=== PATIENT | female | born 1985 | race Caucasian/White ===

== ENCOUNTER 2018-08-17 18:01 | Emergency (ER) | payer SELFPAY ==
[2018-08-17] MEDS ORDERED: KETOROLAC 30 MG/ML INJ ONE (18:51)
[2018-08-17 19:04] LABS: Urine Blood NEGATIVE (NEG); Urine Glucose NEGATIVE (NEG); Urine Protein 1+ (NEG); Urine pH 7.5 (5.0-7.0)
--- NOTE | 2018-08-17 19:21 | ER ---
Nurse's Notes [facility] Name: Arun Sung Age: 33 yrs Sex: Female : 1985 Arrival Date: 08/17/2018 Time: 18:04 Bed 5 Private MD: Emery Cole E Diagnosis: Strain of muscle and tendon of back wall of thorax;Strain of muscle and tendon of thorax;Urinary tract infection, site not specified Presentation: 08/17 18:08 Presenting complaint: Patient states: I think I strained my back on Sunday and today la1 I coughed and felt something pop. Transition of care: patient was not received from another setting of care. Onset of symptoms was August 17, 2018. Risk Assessment: Do you want to hurt yourself or someone else? Patient reports no desire to harm self or others. Initial Sepsis Screen: Does the patient meet any 2 criteria? No. Patient's initial sepsis screen is negative. Does the patient have a suspected source of infection? No. Patient's initial sepsis screen is negative. Care prior to arrival: None. 18:08 Method Of Arrival: Ambulatory la1 18:08 Acuity: DEBI 4 la1 Historical: - Allergies: 18:09 No Known Allergies; la1 - PMHx: 18:09 None; la1 - PSHx: 18:09 None; la1 - Immunization history:: Adult Immunizations up to date. - Social history:: Smoking status: Patient uses tobacco products, smokes one pack cigarettes per day. - Ebola Screening: : No symptoms or risks identified at this time. - Family history:: not pertinent. Screenin:43 Abuse screen: Denies threats or abuse. Denies injuries from another. Nutritional aj screening: No deficits noted. Tuberculosis screening: No symptoms or risk factors identified. Fall Risk None identified. Assessment: 18:43 General: Appears in no apparent distress. comfortable, Behavior is calm, cooperative, aj appropriate for age. Pain: Complains of pain in left mid back and thoracic area. Neuro: Level of Consciousness is awake, alert, obeys commands, Oriented to person, place, time, situation, Appropriate for age. Respiratory: Airway is patent Respiratory effort is even, unlabored, Respiratory pattern is regular, symmetrical. Derm: Skin is intact, is healthy with good turgor, Skin is pink, warm \T\ dry. normal. Musculoskeletal: Reports pain in left mid back and thoracic area and left subscapular area. 19:47 Reassessment: Patient appears in no apparent distress at this time. No changes from aj previously documented assessment. Patient and/or family updated on plan of care and expected duration. Pain level reassessed. Patient is alert, oriented x 3, equal unlabored respirations, skin warm/dry/pink. Patient states feeling better. Patient states symptoms have improved. Vital Signs: 18:09 BP 126 / 79; Pulse 87; Resp 15; Temp 97.5; Pulse Ox 98% on R/A; Weight 61.23 kg; Height la1 5 ft. 7 in. (170.18 cm); 19:47 BP 125 / 76; Pulse 81; Resp 16; Pulse Ox 99% on R/A; aj 18:09 Body Mass Index 21.14 (61.23 kg, 170.18 cm) la1 ED Course: 18:04 Patient arrived in ED. mr 18:05 Emery Cole MD is Private Physician. mr 18:09 Triage completed. la1 18:09 Arm band placed on left wrist. la1 18:13 Jose Basilio MD is Attending Physician. [facility] 18:16 Kaylynn Bran, RN is Primary Nurse. aj 18:43 Patient has correct armband on for positive identification. aj 19:11 Chest Pa And Lat (2 Views) XRAY In Process Unspecified. EDNV 19:20 Emery Cole MD is Referral Physician. [facility] 19:47 No provider procedures requiring assistance completed. Patient did not have IV access aj during this emergency room visit. Administered Medications: 18:43 Drug: TORadol 60 mg Route: IM; Site: left gluteus; aj 19:48 Follow up: Response: No adverse reaction; Pain is decreased aj Outcome: 19:20 Discharge ordered by . lois 19:47 Discharged to home ambulatory. aj 19:47 Condition: good 19:47 Discharge instructions given to patient, Instructed on discharge instructions, follow up and referral plans. medication usage, Demonstrated understanding of instructions, follow-up care, medications, Prescriptions given X 4. 19:49 Patient left the ED. aj Signatures: Dispatcher [employer] EDMS Kaylynn Bran, RN Jose Ospina MD MD cha Rivera, Mary mr Attema, Lee, RN RN la1
--- NOTE | 2018-08-17 19:21 | EDPHYS ---
Physician Documentation [facility] Name: Arun Sung Age: 33 yrs Sex: Female : 1985 Arrival Date: 08/17/2018 Time: 18:04 Bed 5 Private MD: Emery Cole E ED Physician Jose Basilio HPI: 08/17 18:30 This 33 yrs old Female presents to ER via Ambulatory with complaints of Back lois Pain. 18:30 The patient presents with pain that is acute. The symptoms are located in the left lois subscapular area, right subscapular area, thoracic area, left mid back and right mid back. Onset: The symptoms/episode began/occurred today. The pain does not radiate. Associated signs and symptoms: The patient has no apparent associated signs or symptoms. The problem was sustained when lifting boxes. The problem was sustained when bending over, from twisting. Severity of symptoms: At their worst the symptoms were mild, moderate, in the emergency department the symptoms are unchanged. Historical: - Allergies: 18:09 No Known Allergies; la1 - PMHx: 18:09 None; la1 - PSHx: 18:09 None; la1 - Immunization history:: Adult Immunizations up to date. - Social history:: Smoking status: Patient uses tobacco products, smokes one pack cigarettes per day. - Ebola Screening: : No symptoms or risks identified at this time. - Family history:: not pertinent. ROS: 18:30 Constitutional: Negative for fever, chills, and weight loss, Eyes: Negative for injury, lois pain, redness, and discharge, ENT: Negative for injury, pain, and discharge, Neck: Negative for injury, pain, and swelling, Cardiovascular: Negative for chest pain, palpitations, and edema, Respiratory: Negative for shortness of breath, cough, wheezing, and pleuritic chest pain, Abdomen/GI: Negative for abdominal pain, nausea, vomiting, diarrhea, and constipation, : Negative for injury, bleeding, discharge, and swelling, MS/Extremity: Negative for injury and deformity, Skin: Negative for injury, rash, and discoloration, Neuro: Negative for headache, weakness, numbness, tingling, and seizure, Psych: Negative for depression, anxiety, suicide ideation, homicidal ideation, and hallucinations, Allergy/Immunology: Negative for hives, rash, and allergies, Endocrine: Negative for neck swelling, polydipsia, polyuria, polyphagia, and marked weight changes, Hematologic/Lymphatic: Negative for swollen nodes, abnormal bleeding, and unusual bruising. 18:30 Back: Positive for decreased range of motion, pain at rest, pain with movement. Exam: 18:30 Constitutional: This is a well developed, well nourished patient who is awake, alert, lois and in no acute distress. Head/Face: Normocephalic, atraumatic. Eyes: Pupils equal round and reactive to light, extra-ocular motions intact. Lids and lashes normal. Conjunctiva and sclera are non-icteric and not injected. Cornea within normal limits. Periorbital areas with no swelling, redness, or edema. ENT: Nares patent. No nasal discharge, no septal abnormalities noted. Tympanic membranes are normal and external auditory canals are clear. Oropharynx with no redness, swelling, or masses, exudates, or evidence of obstruction, uvula midline. Mucous membranes moist. Neck: Trachea midline, no thyromegaly or masses palpated, and no cervical lymphadenopathy. Supple, full range of motion without nuchal rigidity, or vertebral point tenderness. No Meningismus. Chest/axilla: Normal chest wall appearance and motion. Nontender with no deformity. No lesions are appreciated. Cardiovascular: Regular rate and rhythm with a normal S1 and S2. No gallops, murmurs, or rubs. Normal PMI, no JVD. No pulse deficits. Respiratory: Lungs have equal breath sounds bilaterally, clear to auscultation and percussion. No rales, rhonchi or wheezes noted. No increased work of breathing, no retractions or nasal flaring. Abdomen/GI: Soft, non-tender, with normal bowel sounds. No distension or tympany. No guarding or rebound. No evidence of tenderness throughout. Vital Signs: 18:09 BP 126 / 79; Pulse 87; Resp 15; Temp 97.5; Pulse Ox 98% on R/A; Weight 61.23 kg; Height la1 5 ft. 7 in. (170.18 cm); 19:47 BP 125 / 76; Pulse 81; Resp 16; Pulse Ox 99% on R/A; aj 18:09 Body Mass Index 21.14 (61.23 kg, 170.18 cm) la1 MDM: 18:13 Patient medically screened. [facility] 18:32 Data reviewed: vital signs, nurses notes, lab test result(s), radiologic studies. [facility] 08/17 18:41 Order name: Urine Dipstick--Ancillary (enter results) 08/17 18:41 Order name: Urine --Ancillary (enter results) 08/17 18:30 Order name: Chest Pa And Lat (2 Views) XRAY [facility] 08/17 18:30 Order name: Urine Dipstick-Ancillary (obtain specimen); Complete Time: 18:43 [facility] 08/17 19:20 Order name: Urine Culture [facility] 08/17 18:30 Order name: Urine Test (obtain specimen); Complete Time: 18:43 [facility] Administered Medications: 18:43 Drug: TORadol 60 mg Route: IM; Site: left gluteus; aj 19:48 Follow up: Response: No adverse reaction; Pain is decreased kika Disposition: 08/17/18 19:20 Discharged to Home. Impression: Strain of muscle and tendon of back wall of thorax, Strain of muscle and tendon of thorax, Urinary tract infection, site not specified. - Condition is Stable. - Discharge Instructions: Back Pain, Adult, Urinary Tract Infection, Adult, Urinary Tract Infection, Adult, [id number], Back Pain, Adult, [id number]. - Prescriptions for Ibuprofen 600 mg Oral Tablet - take 1 tablet by ORAL route every 6 hours As needed take with food; 30 tablet. Tylenol- Codeine #3 300-30 mg Oral Tablet - take 2 tablet by ORAL route every 6 hours As needed; 30 tablet. Valium 2 mg Oral Tablet - take 1 tablet by ORAL route every 8 hours As needed; 20 tablet. Bactrim DS 800- 160 mg Oral Tablet - take 1 tablet by ORAL route every 12 hours for 5 days; 10 tablet. - Medication Reconciliation Form, Thank You Letter, Antibiotic Education, Prescription Opioid Use, Work release form form. - Follow up: Emery Cole; When: 2 - 3 days; Reason: Recheck today's complaints, Continuance of care, Re-evaluation by your physician. - Problem is new. - Symptoms have improved. Signatures: Dispatcher [employer] Kaylynn Jorge RN RN aj Anderson, Corey, MD MD cha Attema, Lee RN RN la1 Corrections: (The following items were deleted from the chart) 19:49 19:20 08/17/2018 19:20 Discharged to Home. Impression: Strain of muscle and tendon of aj back wall of thorax; Strain of muscle and tendon of thorax; Urinary tract infection, site not specified. Condition is Stable. Discharge Instructions: Back Pain, Adult, Back Pain, Adult, [id number]. Prescriptions for Ibuprofen 600 mg Oral Tablet - take 1 tablet by ORAL route every 6 hours As needed take with food; 30 tablet, Tylenol-Codeine #3 300-30 mg Oral Tablet - take 2 tablet by ORAL route every 6 hours As needed; 30 tablet. and Forms are Medication Reconciliation Form, Thank You Letter, Antibiotic Education, Prescription Opioid Use. Follow up: Emery Cole; When: 2 - 3 days; Reason: Recheck today's complaints, Continuance of care, Re-evaluation by your physician. Problem is new. Symptoms have improved. lois
--- NOTE | 2018-08-17 20:02 | RAD REPORT ---
EXAM DESCRIPTION: Izabel Grossman (2 Views)08/17/2018 7:11 pm CLINICAL HISTORY: Cough COMPARISON: 2016 FINDINGS: The lungs appear clear of acute infiltrate. The heart is normal size IMPRESSION: No acute abnormalities displayed
== END 2018-08-17 19:49 | disposition home or self-care (01) ==
LOC: ER 18:01
DX: S29.012A Strain of muscle and tendon of back wall of thorax, initial encounter (principal); S29.011A Strain of muscle and tendon of front wall of thorax, initial encounter; X50.0XXA Overexertion from strenuous movement or load, initial encounter; X50.1XXA Overexertion from prolonged static or awkward postures, initial encounter; X50.9XXA Other and unspecified overexertion or strenuous movements or postures, initial encounter; Y93.89 Activity, other specified; Y92.9 Unspecified place or not applicable; N39.0 Urinary tract infection, site not specified; F17.210 Nicotine dependence, cigarettes, uncomplicated
CPT/HCPCS: 71046; 81003; 81025; 87086; 87088

== ENCOUNTER 2019-04-23 14:46 | Emergency (ER) | payer OTHER ==
[2019-04-23 15:41] LABS: Absolute Lymphocytes (CBC) 1.7 K/uL (0.7-4.9); Basophils % 0.5 % (0-1.3); Hematocrit 41.6 % (36.0-45.0); MPV 8.2 fL (7.6-11.3); RBC Red Blood Cell Count 4.25 M/uL (3.86-4.86)
[2019-04-23 15:52] LABS: Protime INR 1.01
--- NOTE | 2019-04-23 15:59 | RAD REPORT ---
EXAM DESCRIPTION: Izabel Single View04/23/2019 3:42 pm CLINICAL HISTORY: Chest pain COMPARISON: July 2018 FINDINGS: The lungs appear clear of acute infiltrate. The heart is normal size IMPRESSION: No acute abnormalities displayed
[2019-04-23 16:23] LABS: ALT/SGPT 12 U/L (12-78); AST/SGOT 9 U/L (15-37); Albumin 3.8 g/dL (3.4-5.0); Alkaline Phosphatase 59 U/L (45-117); BUN Blood Urea Nitrogen 8 mg/dL (7-18); Bicarbonate 25 mmol/L (21-32); Bilirubin Direct 0.1 mg/dL (0-0.2); Bilirubin Total 0.6 mg/dL (0.2-1.0); Glucose Level 88 mg/dL (74-106); Magnesium 1.9 mg/dL (1.8-2.4); NT PRO-BNP 63 pg/mL (<125); Potassium 3.4 mmol/L (3.5-5.1); Protein, Total 7.5 g/dL (6.4-8.2); Sodium Level 142 mmol/L (136-145); Troponin (Emerg Dept Use Only) < 0.02 ng/mL (0.0-0.045)
[2019-04-23] MEDS ORDERED: METHYLPREDNISOLONE 125 MG INJ ONE (16:51)
--- NOTE | 2019-04-23 16:52 | EDPHYS ---
Physician Documentation [facility] Name: Arun Sung Age: 34 yrs Sex: Female : 1985 Arrival Date: 04/23/2019 Time: 14:48 Bed 25 Private MD: ED Physician Cesar Barros HPI: 04/23 16:49 This 34 yrs old Female presents to ER via Ambulatory with complaints of Chest pm1 Pain. 16:49 The patient or guardian reports chest pain that is located primarily in the anterior pm1 chest wall, right. The pain does not radiate. Associated signs and symptoms: The patient has no apparent associated signs or symptoms, Pertinent positives: cough, Pertinent negatives: nausea, shortness of breath, vomiting. The chest pain is described as sharp. Duration: The patient or guardian reports a single episode, that is still ongoing. Modifying factors: the symptoms are aggravated by deep breath, palpation of area. Severity of pain: in the emergency department the pain is unchanged. The patient has not experienced similar symptoms in the past. The patient has not recently seen a physician. onset this AM. 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 - Social history:: Smoking status: Patient uses tobacco products, smokes one-half pack cigarettes per day, Patient uses alcohol, "i stopped drinking 3 months ago, i was a heavy drinker about 6 pk a day". - Ebola Screening: : Patient denies travel to an Ebola-affected area in the 21 days before illness onset. ROS: 16:49 Constitutional: Negative for fever, chills, and weight loss, Eyes: Negative for injury, pm1 pain, redness, and discharge, ENT: Negative for injury, pain, and discharge, Neck: Negative for injury, pain, and swelling. 16:49 Respiratory: 16:49 Respiratory: Positive for cough, Negative for shortness of breath, sputum production, wheezing. 16:49 Abdomen/GI: Negative for abdominal pain, nausea, vomiting, diarrhea, and constipation, pm1 Back: Negative for injury and pain, : Negative for injury, bleeding, discharge, and swelling, MS/Extremity: Negative for injury and deformity, Skin: Negative for injury, rash, and discoloration, Neuro: Negative for headache, weakness, numbness, tingling, and seizure. 16:49 Cardiovascular: Positive for chest pain, with cough, of the right breast, Negative for edema, palpitations. Exam: 16:49 Constitutional: This is a well developed, well nourished patient who is awake, alert, pm1 and in no acute distress. Head/Face: Normocephalic, atraumatic. Eyes: Pupils equal round and reactive to light, extra-ocular motions intact. Lids and lashes normal. Conjunctiva and sclera are non-icteric and not injected. Cornea within normal limits. Periorbital areas with no swelling, redness, or edema. ENT: Nares patent. No nasal discharge, no septal abnormalities noted. Tympanic membranes are normal and external auditory canals are clear. Oropharynx with no redness, swelling, or masses, exudates, or evidence of obstruction, uvula midline. Mucous membranes moist. Neck: Trachea midline, no thyromegaly or masses palpated, and no cervical lymphadenopathy. Supple, full range of motion without nuchal rigidity, or vertebral point tenderness. No Meningismus. 16:49 Cardiovascular: Regular rate and rhythm with a normal S1 and S2. No gallops, murmurs, or rubs. Normal PMI, no JVD. No pulse deficits. Respiratory: Lungs have equal breath sounds bilaterally, clear to auscultation and percussion. No rales, rhonchi or wheezes noted. No increased work of breathing, no retractions or nasal flaring. Abdomen/GI: Soft, non-tender, with normal bowel sounds. No distension or tympany. No guarding or rebound. No evidence of tenderness throughout. Back: No spinal tenderness. No costovertebral tenderness. Full range of motion. Skin: Warm, dry with normal turgor. Normal color with no rashes, no lesions, and no evidence of cellulitis. MS/ Extremity: Pulses equal, no cyanosis. Neurovascular intact. Full, normal range of motion. 16:49 Chest/axilla: Inspection: normal, Palpation: tenderness, that is mild, of the anterior aspect of right upper chest, that totally reproduces the patient's complaints. 16:49 Neuro: Orientation: is normal, Motor: is normal, moves all fours. Vital Signs: 15:00 BP 123 / 92; Pulse 111; Resp 18; Temp 98.6(TE); Pulse Ox 98% on R/A; Weight 63.5 kg tw2 (R); Height 5 ft. 7 in. (170.18 cm); Pain 6/10; 16:21 BP 99 / 70 RA (auto/reg); Pulse 60; Resp 16 S; Pulse Ox 99% on R/A; jp3 15:00 Body Mass Index 21.93 (63.50 kg, 170.18 cm) tw2 MDM: 15:15 Patient medically screened. pm1 16:49 Data reviewed: vital signs. Data interpreted: Pulse oximetry: on room air is 99 %. pm1 Interpretation: normal. Counseling: I had a detailed discussion with the patient and/or guardian regarding: the historical points, exam findings, and any diagnostic results supporting the discharge/admit diagnosis, lab results, radiology results, the need for outpatient follow up, to return to the emergency department if symptoms worsen or persist or if there are any questions or concerns that arise at home. 04/23 15:17 Order name: Basic Metabolic Panel; Complete Time: 16:36 pm04/23 15:17 Order name: CBC with Diff; Complete Time: 16:36 pm04/23 15:17 Order name: LFT's; Complete Time: 16:36 pm04/23 15:17 Order name: Magnesium; Complete Time: 16:36 pm04/23 15:17 Order name: NT PRO-BNP; Complete Time: 16:36 pm04/23 15:17 Order name: PT-INR; Complete Time: 16:36 pm04/23 15:17 Order name: Troponin (emerg Dept Use Only); Complete Time: 16:36 pm04/23 15:17 Order name: XRAY Chest (1 view); Complete Time: 16:36 pm04/23 15:17 Order name: EKG; Complete Time: 15:18 pm04/23 15:17 Order name: Cardiac monitoring; Complete Time: 15:36 pm04/23 15:17 Order name: EKG - Nurse/Tech; Complete Time: 15:36 pm04/23 15:17 Order name: IV Saline Lock; Complete Time: 15:36 pm1 04/23 15:17 Order name: Labs collected and sent; Complete Time: 15:36 pm1 04/23 15:17 Order name: O2 Per Protocol; Complete Time: 15:36 pm1 04/23 15:17 Order name: O2 Sat Monitoring; Complete Time: 15:36 pm1 Administered Medications: 16:52 Drug: SOLU-Medrol 125 mg Route: IVP; Site: left antecubital; ca1 16:57 Follow up: Response: Medication administered at discharge. ca1 Disposition: 04/24 08:55 Co-signature as Attending Physician, Cesar Barros MD I agree with the assessment and kdr plan of care. Disposition: 04/23/19 16:50 Discharged to Home. Impression: Chest pain, unspecified. - Condition is Stable. - Discharge Instructions: Nonspecific Chest Pain. - Prescriptions for Medrol (Handy) 4 mg Oral Tablets, Dose Pack - take 1 tablet by ORAL route as directed - follow package instructions; 1 packet. Guaifenesin AC 10- 100 mg/5 mL Oral Liquid - take 10 milliliter by ORAL route every 4 hours As needed; 240 milliliter. - Medication Reconciliation Form, Thank You Letter, Antibiotic Education, Prescription Opioid Use form. - Follow up: Emergency Department; When: As needed; Reason: Worsening of condition. Follow up: Private Physician; When: 2 - 3 days; Reason: Recheck today's complaints, Continuance of care, Re-evaluation by your physician. - Problem is new. - Symptoms have improved. Signatures: Dispatcher [employer] EDIA Cesar Barros MD MD [facility] Harvey Abraham NP SOLUTION MIXER pm1 Kiley Santiago RN RN tw2 Kathleen Valdivia RN RN ca1 Corrections: (The following items were deleted from the chart) 04/23 16:57 16:50 04/23/2019 16:50 Discharged to Home. Impression: Chest pain, unspecified. ca1 Condition is Stable. Forms are Medication Reconciliation Form, Thank You Letter, Antibiotic Education, Prescription Opioid Use. Follow up: Emergency Department; When: As needed; Reason: Worsening of condition. Follow up: Private Physician; When: 2 - 3 days; Reason: Recheck today's complaints, Continuance of care, Re-evaluation by your physician. Problem is new. Symptoms have improved. pm1 23:09 16:49 Associated signs and symptoms: The patient has no apparent associated signs or pm1 symptoms, Pertinent negatives: cough, nausea, shortness of breath, vomiting, pm1 : 16:49 Constitutional: Negative for fever, chills, and weight loss, Eyes: Negative for pm1 injury, pain, redness, and discharge, ENT: Negative for injury, pain, and discharge, Neck: Negative for injury, pain, and swelling, Cardiovascular: Negative for chest pain, palpitations, and edema, pm1 : 16:49 Respiratory: pm1 pm1
--- NOTE | 2019-04-23 16:52 | ER ---
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 Transition of care: patient was not received from another setting of care. Onset of symptoms was April 23, 2019. Risk Assessment: Do you want to hurt yourself or someone else? Patient reports no desire to harm self or others. Initial Sepsis Screen: Does the patient meet any 2 criteria? No. Patient's initial sepsis screen is negative. Does the patient have a suspected source of infection? No. Patient's initial sepsis screen is negative. Care prior to arrival: None. 14:58 Method Of Arrival: Ambulatory tw2 14:58 Acuity: DEBI 3 tw2 15:05 Presenting complaint: Patient states: i was also sick all last week with this cough and tw2 congestion. Triage Assessment: 15:01 General: Appears in no apparent distress. Behavior is cooperative, appropriate for age, tw2 anxious. Pain: Complains of pain in right breast. Cardiovascular: Reports chest pain. 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 - Social history:: Smoking status: Patient uses tobacco products, smokes one-half pack cigarettes per day, Patient uses alcohol, "i stopped drinking 3 months ago, i was a heavy drinker about 6 pk a day". - Ebola Screening: : Patient denies travel to an Ebola-affected area in the 21 days before illness onset. Screenin:05 Abuse screen: Denies threats or abuse. Nutritional screening: No deficits noted. tw2 Tuberculosis screening: No symptoms or risk factors identified. Fall Risk None identified. Assessment: 15:36 General: Appears in no apparent distress. comfortable, Behavior is calm, cooperative, ca1 appropriate for age. Pain: Complains of pain in anterior aspect of right upper chest and right breast Pain does not radiate. Pain currently is 7 out of 10 on a pain scale. Quality of pain is described as sharp, Pain began 1 day ago. Is continuous. Neuro: Level of Consciousness is awake, alert, obeys commands, Oriented to person, place, time, situation. Cardiovascular: Heart tones S1 S2 present Capillary refill < 3 seconds Patient's skin is warm and dry. Pulses are all present. Rhythm is sinus rhythm. Respiratory: Airway is patent Respiratory effort is even, unlabored, Respiratory pattern is regular, symmetrical, Breath sounds are clear bilaterally. GI: Abdomen is flat, non-distended, Bowel sounds present X 4 quads. Abd is soft and non tender X 4 quads. : No deficits noted. No signs and/or symptoms were reported regarding the genitourinary system. EENT: No deficits noted. No signs and/or symptoms were reported regarding the EENT system. Derm: Skin is intact, is healthy with good turgor, Skin is pink, warm \\T\\ dry. Musculoskeletal: Circulation, motion, and sensation intact. Capillary refill < 3 seconds, Range of motion: intact in all extremities. 16:29 Reassessment: Patient appears in no apparent distress at this time. Patient and/or ca1 family updated on plan of care and expected duration. Pain level reassessed. Patient is alert, oriented x 3, equal unlabored respirations, skin warm/dry/pink. Vital Signs: 15:00 BP 123 / 92; Pulse 111; Resp 18; Temp 98.6(TE); Pulse Ox 98% on R/A; Weight 63.5 kg tw2 (R); Height 5 ft. 7 in. (170.18 cm); Pain 6/10; 16:21 BP 99 / 70 RA (auto/reg); Pulse 60; Resp 16 S; Pulse Ox 99% on R/A; jp3 15:00 Body Mass Index 21.93 (63.50 kg, 170.18 cm) tw2 ED Course: 14:48 Patient arrived in ED. as 15:00 Triage completed. tw2 15:00 Arm band placed on. EKG completed in triage. Results shown to MD. tw2 15:07 Kathleen Valdivia, RN is Primary Nurse. ca1 15:12 Harvey Abraham NP is PHCP. pm1 15:12 Cesar Barros MD is Attending Physician. pm1 15:36 Patient has correct armband on for positive identification. Placed in gown. Bed in low ca1 position. Call light in reach. Side rails up X 1. lunchroom monitor on. Pulse ox on. NIBP on. Warm blanket given. 15:37 XRAY Chest (1 view) In Process Unspecified. EDMS 15:38 Patient maintains SpO2 saturation greater than 95% on room air. ca1 15:48 No provider procedures requiring assistance completed. ca1 16:57 IV discontinued, intact, bleeding controlled, No redness/swelling at site. Pressure ca1 dressing applied. Administered Medications: 16:52 Drug: SOLU-Medrol 125 mg Route: IVP; Site: left antecubital; ca1 16:57 Follow up: Response: Medication administered at discharge. ca1 Outcome: 16:50 Discharge ordered by MD. pm1 16:56 Discharged to home ambulatory. ca1 16:56 Condition: stable 16:56 Discharge instructions given to patient, Instructed on discharge instructions, follow up and referral plans. medication usage, Demonstrated understanding of instructions, follow-up care, medications, Prescriptions given X 2. 16:57 Patient left the ED. ca1 Signatures: Dispatcher [employer] EDMS Linda English as Harvey Abraham NP DIRECT SALES CONSULTANT pm1 Kiley Santiago RN RN tw2 Tc Gould jp3 Kathleen Valdivia RN RN ca1
[2019-04-23 17:08] VITALS: TEMP 98.6
[2019-04-23 17:09] VITALS: BP 99/70; O2SAT 99
--- NOTE | 2019-04-24 07:04 | EKG ---
Test Date: 2019-04-23 Test Time: 15:02:18 Dye Machine Tender: OLEG MEASUREMENT RESULTS: Intervals: Rate: 68 AZ: 118 QRSD: 76 QT: 428 QTc: 455 Bonham: P: 53 AZ: 118 QRS: 67 T: 31 INTERPRETIVE STATEMENTS: Normal sinus rhythm with sinus arrhythmia Normal ECG No previous ECG available for comparison Electronically Signed On 04-24-19 07:03:54 CDT by Nas Lang
== END 2019-04-23 16:57 | disposition home or self-care (01) ==
LOC: ER 14:46
CPT/HCPCS: 93005; 85025; 80048; 36415; 83735; 85610; 80076; 84484; 83880; 71045; 96374; 99285; J2930

== ENCOUNTER 2022-01-11 10:14 | Day surgery (SDC) | payer OTHER, SELFPAY ==
--- NOTE | 2022-01-11 11:41 | RAD REPORT ---
EXAM DESCRIPTION: US - Extremity Nonvascular Complete - 01/11/2022 11:08 am CLINICAL HISTORY: Pain, palpable mass inferior left cheek overlying the mandible. COMPARISON: No comparisons FINDINGS: Sonographic evaluation was performed of the palpable mass in the left cheek. A 13 millimet er oval hypoechoic mass is identifiable. On Doppler assessment there is increased vascularity in the soft tissues immediately adjacent to the hypoechoic mass. The mass itself shows no internal blood norberto w. Surrounding tissues are increased in echogenicity. An abscess is felt to be the most likely etiology. An atypical presentation of a lymph node is possib le. There is no typical echogenic lymph node hilum or vascularity along the hilum. IMPRESSION: Approximately 13 millimeter mass in the superficial soft tissues left cheek. This is the correlate to the palpable abnormality. Abscess is the most likely etiology. No involvement of deeper structures identifiable.
--- NOTE | 2022-01-11 13:40 | EDPHYS ---
Physician Documentation [facility] Name: Arun Sung Age: 36 yrs Sex: Female : 1985 Arrival Date: 01/11/2022 Time: 10:16 Bed 20 Private MD: ED Physician Cesar Barros HPI: 01/11 14:48 This 36 yrs old Female presents to ER via Ambulatory with complaints of Facial Swelling.kdr 14:48 Patient presents with swelling to the left mandible. She has had this small pimple for kdr about 2 months. Over the last 2 to 3 days, she has had increased swelling to her left mandibular area around this suppose it pimple. She denies fever, nausea or vomiting. She is otherwise in her usual state of health.. Onset: The symptoms/episode began/occurred gradually, 3 day(s) ago. Severity of symptoms: At their worst the symptoms were mild in the emergency department the symptoms are unchanged. The patient has not experienced similar symptoms in the past. The patient has not recently seen a physician. 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 Last tetanus immunization: unknown. - Social history:: Smoking status: Patient denies any tobacco usage or history of. ROS: 14:48 Constitutional: Negative for fever, chills, and weight loss, Eyes: Negative for injury, kdr pain, redness, and discharge, ENT: Negative for injury, pain, and discharge, Neck: Negative for injury, pain, and swelling, Cardiovascular: Negative for chest pain, palpitations, and edema, Respiratory: Negative for shortness of breath, cough, wheezing, and pleuritic chest pain, Abdomen/GI: Negative for abdominal pain, nausea, vomiting, diarrhea, and constipation, Back: Negative for injury and pain, : Negative for injury, bleeding, discharge, and swelling, MS/Extremity: Negative for injury and deformity, Neuro: Negative for headache, weakness, numbness, tingling, and seizure activity. Psych: Negative for depression, anxiety, suicide ideation, homicidal ideation, and hallucinations, Allergy/Immunology: Negative for hives, rash, and allergies, Endocrine: Negative for neck swelling, polydipsia, polyuria, polyphagia, and marked weight changes, Hematologic/Lymphatic: Negative for swollen nodes, abnormal bleeding, and unusual bruising. 14:48 Skin: Positive for abscess, cellulitis, erythema, swelling, of the left cheek. Exam: 14:48 Constitutional: This is a well developed, well nourished patient who is awake, alert, kdr and in no acute distress. Head/Face: Normocephalic, atraumatic. Eyes: Pupils equal round and reactive to light, extra-ocular motions intact. Lids and lashes normal. Conjunctiva and sclera are non-icteric and not injected. Cornea within normal limits. Periorbital areas with no swelling, redness, or edema. Neck: Trachea midline, no thyromegaly or masses palpated, and no cervical lymphadenopathy. Supple, full range of motion without nuchal rigidity, or vertebral point tenderness. No Meningismus. Chest/axilla: Normal chest wall appearance and motion. Nontender with no deformity. No lesions are appreciated. Cardiovascular: Regular rate and rhythm with a normal S1 and S2. No gallops, murmurs, or rubs. Normal PMI, no JVD. No pulse deficits. Respiratory: Lungs have equal breath sounds bilaterally, clear to auscultation and percussion. No rales, rhonchi or wheezes noted. No increased work of breathing, no retractions or nasal flaring. Abdomen/GI: Soft, non-tender, with normal bowel sounds. No distension or tympany. No guarding or rebound. No evidence of tenderness throughout. 14:48 Head/face: Noted is erythema, that is mild, of the left cheek. Vital Signs: 10:19 BP 139 / 97; Pulse 100; Resp 17; Temp 98.4(TE); Pulse Ox 100% on R/A; Weight 58.97 kg; tw2 Height 5 ft. 7 in. (170.18 cm) (R); Pain 6/10; 10:19 Body Mass Index 20.36 (58.97 kg, 170.18 cm) tw2 MDM: 13:39 Patient medically screened. kdr 14:48 Data reviewed: vital signs, nurses notes, lab test result(s), radiologic studies. kdr Counseling: I had a detailed discussion with the patient and/or guardian regarding: the historical points, exam findings, and any diagnostic results supporting the discharge/admit diagnosis, lab results, radiology results, the need for outpatient follow up. 01/11 13:51 Order name: Test Serum, [facility] 01/11 10:45 Order name: US Extrmty Nonvasular Limited kdr 01/11 10:49 Order name: Extremity Nonvascular Complete; Complete Time: 12:32 [facility] 01/11 13:27 Order name: NPO bd Administered Medications: No medications were administered Disposition Summary: 01/11/22 13:39 Hospitalization Ordered Hospitalization Status: Observation kdr Provider: Logan Ramirez Location: Operating Room kdr Condition: Fair kdr Problem: new kdr Symptoms: are unchanged kdr Bed/Room Type: Standard kdr Room Assignment: kdr Diagnosis - Left Facial Abscess kdr Discharge Instructions: - Discharge Summary Sheet tw2 Forms: - Medication Reconciliation Form kdr - Work release form tw2 - SBAR form kdr Signatures: Dispatcher [employer] [facility] Reema Bass Cesar Barros MD MD kdr Kiley Santiago RN RN tw2
--- NOTE | 2022-01-11 13:40 | ER ---
Nurse's Notes [facility] Name: Arun Sung Age: 36 yrs Sex: Female : 1985 Arrival Date: 01/11/2022 Time: 10:16 Bed 20 Private MD: Diagnosis: Left Facial Abscess Presentation: 01/11 10:19 Chief complaint: Patient states: i thought it was a pimple.on the left side for months. tw2 and it is swollen and painful. Coronavirus screen: At this time, the client does not indicate any symptoms associated with coronavirus-19. Ebola Screen: Patient denies travel to an Ebola-affected area in the 21 days before illness onset. Initial Sepsis Screen: Does the patient meet any 2 criteria? HR > 90 bpm. No. Patient's initial sepsis screen is negative. Does the patient have a suspected source of infection? No. Patient's initial sepsis screen is negative. Risk Assessment: Do you want to hurt yourself or someone else? Patient reports no desire to harm self or others. Onset of symptoms was January 11, 2022. 10:19 Method Of Arrival: Ambulatory tw2 10:19 Acuity: DEBI 3 tw2 Triage Assessment: 10:21 General: Appears in no apparent distress. slender, Behavior is calm, cooperative, tw2 appropriate for age. Pain: Complains of pain in left jaw. 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 Last tetanus immunization: unknown. - Social history:: Smoking status: Patient denies any tobacco usage or history of. Screenin:23 Abuse screen: Denies threats or abuse. Nutritional screening: No deficits noted. tw2 Tuberculosis screening: No symptoms or risk factors identified. Fall Risk None identified. Assessment: 10:28 General: Appears in no apparent distress. comfortable, Behavior is calm, cooperative. jh6 Pain: Complains of pain in left cheek Pain currently is 3 out of 10 on a pain scale. Quality of pain is described as aching. Derm: Wound noted left cheek Abscess located on left cheek is quarter sized. Vital Signs: 10:19 BP 139 / 97; Pulse 100; Resp 17; Temp 98.4(TE); Pulse Ox 100% on R/A; Weight 58.97 kg; tw2 Height 5 ft. 7 in. (170.18 cm) (R); Pain 6/10; 10:19 Body Mass Index 20.36 (58.97 kg, 170.18 cm) tw2 ED Course: 10:16 Patient arrived in ED. rg4 10:20 Triage completed. tw2 10:20 Arm band placed on. tw2 10:22 Doreen Medina, RN is Primary Nurse. jh6 10:23 Bed in low position. Call light in reach. tw2 10:34 No provider procedures requiring assistance completed. jh6 10:39 Cesar Barros MD is Attending Physician. kdr 11:01 Patient taken to ultrasound. jh6 11:10 Extremity Nonvascular Complete In Process Unspecified. EDMS 13:39 Logan Ramirez MD is Hospitalizing Provider. kdr Administered Medications: No medications were administered Medication: 10:23 VIS not applicable for this client. tw2 Outcome: 13:39 Decision to Hospitalize by Provider. kdr 14:10 Admitted to OR accompanied by nurse, via stretcher. jh6 14:10 Condition: good 14:10 Instructed on the need for admit. 14:11 Patient left the ED. [facility] Signatures: Dispatcher [employer] EDMS Cesar Barros MD MD kdr Kiley Santiago RN RN 2 Mary Jackson rg4 Doreen Medina, DONALD RN [facility]
[2022-01-11] MEDS ORDERED: CEFAZOLIN SODIUM 1 GM/VIAL ONE (13:55)
[2022-01-11] MEDS ORDERED: Ringers Lactate 1,000 ML IV ONE (13:56)
[2022-01-11] MEDS ORDERED: FENTANYL CITR 100 MCG/2 ML ONE (14:21)
[2022-01-11] MEDS ORDERED: LIDOCAINE 1% MPF 5 ML VIAL ONE (14:21)
[2022-01-11] MEDS ORDERED: MIDAZOLAM HCL 2 MG/2 ML INJ ONE (14:21)
[2022-01-11] MEDS ORDERED: propofoL 200 MG/20 ML VIAL IV ONE (14:21)
[2022-01-11] MEDS ORDERED: BSS OPTHALMIC SOL 15 ML OPTH ONE (14:24)
[2022-01-11] MEDS ORDERED: LIDOCAINE 1% 20 ML MDV ONE (14:48)
[2022-01-11] MEDS ORDERED: NS 0.9% VIAL 10 ML ONE (14:56)
[2022-01-11] MEDS ORDERED: ROCURONIUM 50 MG/5 ML VIAL IV ONE (14:59)
[2022-01-11] MEDS ORDERED: LIDOCAINE 1% W/EPI 1:100,000 MDV 20 ML VIAL ONE (15:06)
[2022-01-11] MEDS ORDERED: dexAMETHasone 10 MG/ML VIAL ONE (15:08)
[2022-01-11] MEDS ORDERED: KETOROLAC 30 MG/ML INJ ONE (15:08)
[2022-01-11] MEDS ORDERED: ONDANSETRON 4 MG/2 ML VIAL ONE (15:09)
[2022-01-11] MEDS ORDERED: SUCCINYLCHOLINE 20 MG/ML (10 ML) IV ONE (15:36)
[2022-01-11 16:02] VITALS: TEMP 97.5; O2SAT 99
[2022-01-11] MEDS ORDERED: CODEINE 30MG/APAP 300MG TAB ONE (16:19)
[2022-01-11 16:37] VITALS: BP 118/74
--- NOTE | 2022-01-12 15:29 | HP ---
Date of Admission: 01/11/2022 The patient is a 36-year-old white female who has a left face abscess for 1 month . She rabago s poor dental hygiene, but no caries. does smoke occasionally. Allergies: NO ALLERGIES. Medications: No medications. . Physical Examination: VITAL SIGNS: She is 5 feet 7 inches and . She has on the left mandibular area a mass, kelly rounding erythema. It is quite tender. induration approximately 3 cm. ORAL EXAM: There is no pus coming from the parotid duct and the teeth. Poor hygiene, from the dental area. Assessment: Abscess of the face. Plan: Incision and drainage. LISA/MARCUS Voice ID: [id number]
--- NOTE | 2022-01-12 15:29 | OP ---
Surgeon: Logan Ramirez MD Preoperative Diagnosis: Abscess of the left mandibular area. Postoperative Diagnosis: Abscess of the left mandibular area. Procedure Performed: Excision of 2 x 1 cm abscess. Anesthesia: General. Description Of Procedure: After satisfactory induction of general anesthesia, 1% xylocaine with epin ephrine was used to inject the surrounding area. Hand and face prepped with Betadine scrub, Betadine paint. Dry sterile drapes were applied in the usual manner. Elliptical incision was made paralleli ng the mandible excising the abscess. Cultures were taken and then the wound was jet lavaged, irriga to with 3 L half-inch Nu Gauze soaked in Betadine and 4 x 4 tape. The patient tolerated the procedure well, returned to the Recovery. LISA/MARCUS Voice ID: [id number] Report ID: [id number]
== END 2022-01-11 16:29 | disposition home or self-care (01) ==
LOC: ER 10:14 → DS 14:30
PROVIDERS: ATTEND Specialist
PROC: 0J910ZZ Drainage of Face Subcutaneous Tissue and Fascia, Open Approach (ICD-10-PCS; principal; 2022-01-11 14:30)
DX: L02.01 Cutaneous abscess of face (principal); L72.0 Epidermal cyst
CPT/HCPCS: 36415; 76881; 84703; 87070; 87075; 87205; 88304; 99285; J0330; J0690; J1100; J2250; J2405; J2704; J3010; J7120

== ENCOUNTER 2023-11-12 08:11 | Observation (INO) | payer SELFPAY ==
[2023-11-12] MEDS ORDERED: ALBUTEROL 2.5 MG/3 ML NEB SOL ONE (08:30)
[2023-11-12] MEDS ORDERED: METHYLPREDNISOLONE 125 MG INJ ONE ×2 (08:30→14:53)
[2023-11-12] MEDS ORDERED: IPRATROPIUM BROM 0.5MG/2.5ML ONE (08:30)
[2023-11-12 08:49] LABS: Absolute Basophils 0.1 K/uL (0-0.5); Absolute Eosinophils 0.3 K/uL (0-0.5); Absolute Lymphocytes (CBC) 1.9 K/uL (0.7-4.9); Absolute Monocytes 0.5 K/uL (0.1-1.3); Absolute Neutrophil 4.8 K/uL (1.8-8.0); Hematocrit 44.3 % (36.0-45.0); Hemoglobin 14.9 g/dL (12.0-15.0); Lymphocytes % 24.5 % (15.3-44.8); MCH 33.1 pg (27.0-35.0); MCHC 33.6 g/dL (32.0-36.0); MCV 98.4 fL (80-100); MPV 7.4 fL (7.6-11.3); Monocytes % 6.7 % (3.3-12.3); Neutrophils % 63.8 % (41.7-73.7); Nucleated Red Blood Cells % 0.1 % (0-0); Platelets 287 thou/uL (152-406)
[2023-11-12 08:53] LABS: PT Prothrombin Time 10.2 SECONDS (9.5-12.5); PTT, Activated Partial Thromb 28.3 SECONDS (24.3-36.9); Protime INR 0.93
[2023-11-12 09:02] LABS: SARS-CoV-2 Antigen CONTROL BLUE LINE VIS/BG OK; SARS-CoV-2 Antigen Rapid Res Negative (Negative)
[2023-11-12 09:08] LABS: Specific Gravity 1.008 (1.005-1.030)
[2023-11-12 09:08] LABS: Albumin 3.7 g/dL (3.4-5.0); Anion Gap 7.7 mEq/L (5.0-15.0); Bilirubin Direct 0.1 mg/dL (0-0.2); Bilirubin Indirect, Calculated 0.4 mg/dL (0.2-0.8); Bilirubin Total 0.5 mg/dL (0.2-1.0); Globulin 3.7 g/dL (2.3-3.5); Magnesium 1.9 mg/dL (1.6-2.4); Potassium 3.7 mEq/L (3.5-5.1); Protein, Total 7.4 g/dL (6.4-8.2); Troponin High Sensitivity 3.8 pg/mL (<58.9)
--- NOTE | 2023-11-12 09:38 | RAD REPORT ---
EXAM DESCRIPTION: CT - Chest For Pe Angio - 11/12/2023 9:25 am CLINICAL HISTORY: Shortness of breath COMPARISON: 2013 TECHNIQUE: Dynamically enhanced axial 3 mm thick images of the chest were obtained during administra tion of 100 mL Isovue 370 IV contrast. Coronal and oblique reconstruction images were generated and r eviewed. Exam utilizes a protocol for optimal evaluation of pulmonary arterial tree. Maximum intensity projections 3D imaging was utilized All CT scans are performed using dose optimization technique as appropriate and may include automated exposure control or mA/KV adjustment according to patient size. FINDINGS: A pulmonary embolus is not seen. A thoracic aortic aneurysm is not noted. A pleural effusion is not seen. A pericardial effusion is not seen. A lung consolidation is not present. IMPRESSION: Negative for a pulmonary embolism.
--- NOTE | 2023-11-12 09:57 | ER ---
Nurse's Notes [facility] Name: Arun Sung Age: 38 yrs Sex: Female : 1985 Arrival Date: 11/12/2023 Time: 08:11 Bed 2 Private MD: Diagnosis: Acute respiratory failure with hypoxia Presentation: 11/11 08:20 Chief complaint: Patient states: SOB, CP, feels hot since 3 AM. Coronavirus screen: ll1 Client denies travel out of the [place] in the last 14 days. difficulty breathing, shortness of breath, Client presents with at least one sign or symptom that may indicate coronavirus-19. Standard/surgical mask placed on the client. Ebola Screen: Patient denies travel to an Ebola-affected area in the 21 days before illness onset. Initial Sepsis Screen: Does the patient meet any 2 criteria? HR > 90 bpm. Does the patient have a suspected source of infection? No. Patient's initial sepsis screen is negative. Risk Assessment: Do you want to hurt yourself or someone else? Patient reports no desire to harm self or others. Onset of symptoms was November 12, 2023. 08:20 Method Of Arrival: Ambulatory ll1 08:20 Acuity: DEBI 2 ll1 Triage Assessment: 08:22 General: Appears distressed, uncomfortable, Behavior is calm, cooperative, appropriate ll1 for age. Pain: Complains of pain in chest Pain currently is 6 out of 10 on a pain scale. Quality of pain is described as pressure, Pain began 3 AM. Respiratory: Reports shortness of breath labored breathing pain with respiration Onset: The symptoms/episode began/occurred this morning, the patient has moderate shortness of breath. Historical: - Allergies: 08:20 No Known Allergies; ll1 - PMHx: 08:20 None; ll1 - PSHx: 08:20 None; ll1 - Immunization history:: Adult Immunizations up to date. - Infectious Disease History:: Denies. - Social history:: Smoking status: Patient reports the use of cigarette tobacco products, smokes one pack cigarettes per day. Screenin:39 [facility] ED Fall Risk Assessment (Adult) History of falling in the last 3 months, ld1 including since admission No falls in past 3 months (0 pts). Abuse screen: Denies threats or abuse. Denies injuries from another. Nutritional screening: No deficits noted. Tuberculosis screening: No symptoms or risk factors identified. Assessment: 08:38 General: Appears in no apparent distress. comfortable, Behavior is calm, cooperative, ld1 appropriate for age. Pain: Denies pain. Neuro: Level of Consciousness is awake, alert, obeys commands, Oriented to person, place, time, situation. Cardiovascular: Capillary refill < 3 seconds Patient's skin is warm and dry. Rhythm is sinus rhythm. Respiratory: Reports shortness of breath at rest on exertion labored breathing since this morning Airway is patent Respiratory effort is even, labored, Breath sounds with wheezes bilaterally. Onset: The symptoms/episode began/occurred this morning, the patient has moderate shortness of breath. GI: Abdomen is round non-distended. : No signs and/or symptoms were reported regarding the genitourinary system. EENT: No signs and/or symptoms were reported regarding the EENT system. Derm: No signs and/or symptoms reported regarding the dermatologic system. Musculoskeletal: No signs and/or symptoms reported regarding the musculoskeletal system. 09:54 Reassessment: Pt placed on 1L and desat to 88%, pt placed back on 2L and is now ox sat rs5 are 93%. 09:55 Reassessment: Patient and/or family updated on plan of care and expected duration. Pain rs5 level reassessed. Patient is alert, oriented x 3, equal unlabored respirations, skin warm/dry/pink. 12:42 Reassessment: No changes from previously documented assessment. Patient and/or family ld1 updated on plan of care and expected duration. Pain level reassessed. Patient is alert, oriented x 3, equal unlabored respirations, skin warm/dry/pink. Vital Signs: 08:20 BP 157 / 89; Pulse 109; Resp 20; Temp 98; Pulse Ox 84% on R/A; Weight 70.31 kg; Height ll1 5 ft. 7 in. ; Pain 6/10; 08:22 Pulse Ox 91% on 2 lpm NC; ll1 08:38 BP 146 / 92; Pulse 78; Resp 20; Pulse Ox 93% on 9 lpm Nebulizer Mask; ld1 08:59 BP 144 / 89; Pulse 77; Resp 21; Pulse Ox 96% on Nebulizer Mask; ld1 09:46 Pulse Ox 96% on 2 lpm NC; sb4 10:33 BP 128 / 88; Pulse 87; Resp 16; Pulse Ox 94% on 2 lpm NC; ld1 12:42 BP 129 / 78; Pulse 75; Resp 17; Pulse Ox 96% on R/A; ld1 08:20 Body Mass Index 24.28 (70.31 kg, 170.18 cm) ll1 08:20 Pain Scale: Adult ll1 ED Course: 08:13 Patient arrived in ED. mr 08:13 Leandra De La Torre PA-C is PHCP. sb4 08:13 Jame Quigley MD is Attending Physician. sb4 08:18 Lee Ann Watson, DONALD is Primary Nurse. ld1 08:22 Triage completed. ll1 08:22 Arm band placed on Patient placed in an exam room, on a stretcher. ll1 08:38 Flu Sent. ld1 08:38 SARS RAPID Sent. ld1 08:38 Lactate w/ 2H reflex if indic. Sent. ld1 08:38 Blood Culture Adult (2) Sent. ld1 08:39 Patient has correct armband on for positive identification. Placed in gown. Bed in low ld1 position. Call light in reach. Side rails up X2. monitoring tech on. Pulse ox on. NIBP on. Door closed. Noise minimized. Warm blanket given. 08:39 No provider procedures requiring assistance completed. Inserted saline lock: 20 gauge ld1 in right antecubital area, using aseptic technique. Blood collected. 08:59 XRAY CXR (1 view) In Process Unspecified. EDMS 09:26 CT Chest For PE Angio In Process Unspecified. EDMS 09:56 Fatuma Eiwng MD is Hospitalizing Provider. sb4 14:35 Provided Education on: Medication usage. ld1 14:35 Patient admitted, IV remains in place. ld1 Administered Medications: 08:35 Drug: DuoNeb Nebulize (3:1) (2.5 mg - 0.5 mg) 3 ml Nebulizer once Route: Nebulizer; rs5 08:36 Drug: MethylPrednisoLONE IVP 125 mg IVP once Route: IVP; Site: right antecubital; rs5 Medication: 14:35 VIS not applicable for this client. ld1 Outcome: 09:56 Decision to Hospitalize by Provider. sb4 14:35 Admitted to ER Hold. Please see [facility] for further documentation. ld1 14:35 Condition: stable 14:35 Instructed on the need for admit, 20:23 Patient left the ED. rv Signatures: Dispatcher [employer] EDKarey Smith, Evan Gordon mr Alonzo Doll, RN RN rv Arie Pineda RN RN ll1 Lee Ann Watson RN RN ld1 Leandra De La Torre, PA-C PA-C sb4 Marin Costa RN RN rs5
--- NOTE | 2023-11-12 09:57 | EDPHYS ---
Physician Documentation [facility] Name: Arun Sung Age: 38 yrs Sex: Female : 1985 Arrival Date: 11/12/2023 Time: 08:11 Bed 2 Private MD: ED Physician Jame Quigley HPI: 11/11 08:27 This 38 yrs old Female presents to ER via Ambulatory with complaints of Breathing sb4 Difficulty. 08:29 Patient states that she was awoken at 3 AM with sudden onset of shortness of breath and sb4 chest pain. States that she was feeling completely fine prior. She denies any pertinent medical history. Reports asthma as a child but has not had any issues with this since. She does smoke daily. Denies any recent travel or prolonged immobilization. Historical: - Allergies: 08:20 No Known Allergies; ll1 - PMHx: 08:20 None; ll1 - PSHx: 08:20 None; ll1 - Immunization history:: Adult Immunizations up to date. - Infectious Disease History:: Denies. - Social history:: Smoking status: Patient reports the use of cigarette tobacco products, smokes one pack cigarettes per day. ROS: 08:29 Constitutional: Negative for fever, chills, and weight loss, sb4 08:29 Cardiovascular: Positive for chest pain, 08:29 Respiratory: Positive for shortness of breath, at rest. 08:29 All other systems are negative, Exam: 08:29 Head/Face: Normocephalic, atraumatic. Eyes: Extra-ocular motions intact. Periorbital sb4 areas with no swelling, redness, or edema. ENT: Mucous membranes moist. Abdomen/GI: Soft, non-tender, no distension. Skin: Warm, dry with normal turgor. Normal color with no rashes, no lesions, and no evidence of cellulitis. MS/ Extremity: Pulses equal, no cyanosis. Neurovascular intact. Full, normal range of motion. Neuro: Awake and alert, GCS 15, oriented to person, place, time, and situation. Motor strength 5/5 in all extremities. Sensory grossly intact. 08:29 Constitutional: The patient appears alert, awake, in obvious distress, moderately distressed, 08:29 Cardiovascular: Rate: tachycardic, Rhythm: regular, 08:29 Respiratory: moderate respiratory distress is noted, Respirations: labored breathing, that is mild, tachypnea, that is mild, Breath sounds: wheezing: expiratory is heard in the right posterior lower lobe, Vital Signs: 08:20 BP 157 / 89; Pulse 109; Resp 20; Temp 98; Pulse Ox 84% on R/A; Weight 70.31 kg; Height ll1 5 ft. 7 in. ; Pain 6/10; 08:22 Pulse Ox 91% on 2 lpm NC; ll1 08:38 BP 146 / 92; Pulse 78; Resp 20; Pulse Ox 93% on 9 lpm Nebulizer Mask; ld1 08:59 BP 144 / 89; Pulse 77; Resp 21; Pulse Ox 96% on Nebulizer Mask; ld1 09:46 Pulse Ox 96% on 2 lpm NC; sb4 10:33 BP 128 / 88; Pulse 87; Resp 16; Pulse Ox 94% on 2 lpm NC; ld1 12:42 BP 129 / 78; Pulse 75; Resp 17; Pulse Ox 96% on R/A; ld1 08:20 Body Mass Index 24.28 (70.31 kg, 170.18 cm) ll1 08:20 Pain Scale: Adult ll1 MDM: 08:14 Patient medically screened. sb4 09:45 ED course: patient feeling better, lungs clear on auscultation, no respiratory sb4 distress, will titrate O2 down to see if she can tolerate RA then reassess. 09:55 Differential diagnosis: Anemia asthma, Chronic Obstructive Pulmonary Disease pneumonia, sb4 Pulmonary Embolism. The patient's pulmonary embolism risk score was calculated as follows: No Risks (0 Pts) the patients heart rate is greater than 100 beats per minute (1.5 Pts) Total Score: 0-2 points. This patient was found to be at low risk for a pulmonary embolism by using the Well's assessment criteria. Data reviewed: vital signs, nurses notes, lab test result(s), EKG, radiologic studies, and as a result, I will admit patient. Consideration of Admission/Observation Patient was admitted/placed on observation. Counseling: I had a detailed discussion with the patient and/or guardian regarding the historical points, exam findings, and any diagnostic results supporting the discharge/admit diagnosis, lab results, radiology results, the need for further work-up and treatment in the hospital. 11/11 08:19 Order name: BMP; Complete Time: 09:11 sb4 11/11 08:19 Order name: Blood Culture Adult (2) sb4 11/11 08:19 Order name: CBC with Diff; Complete Time: 08:51 sb4 11/11 08:19 Order name: Hepatic Function; Complete Time: 09:11 sb4 11/11 08:19 Order name: Magnesium; Complete Time: 09:11 sb4 11/11 08:19 Order name: NT PRO-BNP; Complete Time: 09:11 sb4 11/11 08:19 Order name: PT-INR; Complete Time: 08:57 sb4 11/11 08:19 Order name: Test, Urine; Complete Time: 09:08 sb4 11/11 08:19 Order name: Ptt, Activated; Complete Time: 08:57 sb4 11/11 08:19 Order name: Troponin HS; Complete Time: 09:11 sb4 11/11 08:19 Order name: SARS RAPID; Complete Time: 09:06 sb4 11/11 08:19 Order name: Flu; Complete Time: 09:06 sb4 11/11 08:19 Order name: Lactate w/ 2H reflex if indic.; Complete Time: 09:07 sb4 11/11 10:07 Order name: ABG; Complete Time: 11:12 sb4 11/11 10:49 Order name: CBC with Automated Diff EDMS 11/11 10:49 Order name: CBC with Automated Diff EDMS 11/11 10:49 Order name: Comprehensive Metabolic Panel EDMS 11/11 10:49 Order name: Comprehensive Metabolic Panel EDMS 11/11 10:49 Order name: Troponin High Sensitivity EDMS 11/11 10:50 Order name: Troponin High Sensitivity EDMS 11/11 10:50 Order name: Troponin High Sensitivity EDMS 11/11 10:50 Order name: Troponin High Sensitivity EDMS 11/11 08:19 Order name: CT Chest For PE Angio; Complete Time: 09:41 sb4 11/11 08:19 Order name: XRAY CXR (1 view); Complete Time: 10:01 sb4 11/11 08:19 Order name: EKG; Complete Time: 08:20 sb4 11/11 08:19 Order name: Cardiac monitoring; Complete Time: 08:27 sb4 11/11 08:19 Order name: EKG - Nurse/Tech; Complete Time: 08:27 sb4 11/11 08:19 Order name: IV Saline Lock; Complete Time: 08: sb4 11/11 08:19 Order name: Labs collected and sent; Complete Time: sb4 11/11 08:19 Order name: O2 Per Protocol; Complete Time: : sb4 11/11 08:19 Order name: O2 Sat Monitoring; Complete Time: : sb4 Administered Medications: 08:35 Drug: DuoNeb Nebulize (3:1) (2.5 mg - 0.5 mg) 3 ml Nebulizer once Route: Nebulizer; rs5 08:36 Drug: MethylPrednisoLONE IVP 125 mg IVP once Route: IVP; Site: right antecubital; rs5 Disposition: 11/12 14:11 Co-signature as Attending Physician, Jame Quigley MD I reviewed the patient's care rn provided by the Advanced Practice Provider and agree with the diagnosis and treatment plan. Disposition Summary: 11/12/23 09:56 Hospitalization Ordered Notes: Hospitalization Status: Inpatient Admission sb4 Provider: Fatuma Ewign sb4 Condition: Fair sb4 Problem: new sb4 Symptoms: are unchanged sb4 Bed/Room Type: Standard sb4 Location: Telemetry/MedSurg (Inpatient)(11/12/23 19:44) eb1 Room Assignment: 429(11/12/23 19:44) eb1 Diagnosis - Acute respiratory failure with hypoxia sb4 Forms: - Medication Reconciliation Form sb4 - SBAR form sb4 - Leadership Thank You Letter sb4 Signatures: Dispatcher [employer] Jame Sheffield MD MD rn Leal, Jahala RN RN jl7 Margoth Richey RN RN eb1 Arie Pineda RN RN ll1 Lee Ann Watson RN RN ld1 Leandra De La Torre PA-C PAShayan sb4 Marin Costa, RN RN rs5 Corrections: (The following items were deleted from the chart) 11/11 08:20 08:20 BASIC METABOLIC PANEL+C.LAB.BRZ ordered. EDMS EDMS 08:20 08:20 BLOOD CULTURE*+BA.LAB.BRZ ordered. EDMS EDMS 08:20 08:20 CBC+H.LAB.BRZ ordered. EDMS EDMS 08:20 08:20 HEPATIC FUNCTION+C.LAB.BRZ ordered. EDMS EDMS 08:20 08:20 MAGNESIUM+C.LAB.BRZ ordered. EDMS EDMS 08:20 08:20 PROBNP+C.LAB.BRZ ordered. EDMS EDMS 08:20 08:20 PROTIME (+INR)+COAG.LAB.BRZ ordered. EDMS EDMS 08:20 08:20 Test, Urine+UC.LAB.BRZ ordered. EDMS EDMS 08:20 08:20 PTT, ACTIVATED+COAG.LAB.BRZ ordered. EDMS EDMS 08:20 08:20 Troponin High Sensitivity+C.LAB.BRZ ordered. EDMS EDMS 08:20 08:20 SARS-COV-2 Antigen Rapid+I.LAB.BRZ ordered. EDMS EDMS 08:20 08:20 Influenza Screen (A \T\ B)+BA.LAB.BRZ ordered. EDMS EDMS 08:20 08:20 LACTATE+C.LAB.BRZ ordered. EDMS EDMS 12:30 09:56 Telemetry/MedSurg (Inpatient) sb4 jl7 12:30 09:56 sb4 jl7 19:44 12:30 [facility] ER HOLD jl7 eb1 19:44 12:30 ERHOLD- jl7 eb1
--- NOTE | 2023-11-12 09:59 | RAD REPORT ---
EXAM DESCRIPTION: Izabel Single View11/12/2023 9:02 am CLINICAL HISTORY: Chest pain COMPARISON: 2019 FINDINGS: Lungs are mildly to moderately hyperaerated. The lungs appear clear of acute infiltrate. The heart is normal size IMPRESSION: No acute abnormalities displayed
[2023-11-12 10:36] LABS: Arterial Blood Carboxyhemoglob 1.2 % (0-1.5); Blood Gas Oxyhemoglobin 93.4 % (94-97); Blood Gas THB 14.5 g/dl (12-18); Blood O2 Saturation 96.1 % (92-98.5)
[2023-11-12] MEDS ORDERED: ONDANSETRON 4 MG/2 ML VIAL IV PRN (10:45)
[2023-11-12] MEDS ORDERED: MORPHINE 2 MG/ML SYR IV PRN (10:45)
--- NOTE | 2023-11-12 10:48 | P.HP ---
Certification for Inpatient Patient admitted to: Observation With expected LOS: <2 Midnights Patient will require the following post-hospital care: None Practitioner: I am a practitioner with admitting privileges, knowledge of patient current condition, hospital course, and medical plan of care. Services: Services provided to patient in accordance with Admission requirements found in Title 42 Section 412.3 of the Code of Federal Regulations <Fatuma Ewing - Last Filed: 11/12/23 10:48> Patient History Date of Service: 11/12/23 <Fatuma Ewing - Last Filed: 11/12/23 10:48> History of Present Illness: 38-year-old female with a past medical history asthma, tobacco use presents to the emergency room with shortness of breath. She reports shortness of breath that started after she woke up. She reports shortness of breath is worse with exertion, reports intermittent chest pain that is worse with shortness of breath. No reported chest pain radiation. Patient was treated with albuterol nebulizer in the ER. Solu-Medrol. No reported fever, nausea vomiting diarrhea, congestion problem plan to admit for acute hypoxic respiratory failure secondary to asthma exacerbation. - Past Medical/Surgical History -: Asthma Past Surgical History: Patient denies surgical history - Social History Smoking Status: Current some day smoker <Josephine Mauricio - Last Filed: 11/14/23 07:06> Allergies No Known Allergies Allergy (Unverified 01/11/22 13:48) Home Medications: Albuterol Inhaler [Ventolin Inhaler*] 2 puff IH Q6H PRN #1 inh 11/13/23 predniSONE [Deltasone] 20 mg PO BID #20 tab 11/13/23 Review of Systems Per HPI <Josephine Mauricio - Last Filed: 11/14/23 07:06> Physical Examination - Studies Laboratory Data (last 24 hrs) 11/12/23 11/12/23 11/12/23 08:32 08:32 08:32 WBC 7.60 Hgb 14.9 Hct 44.3 Plt Count 287 PT 10.2 INR 0.93 APTT 28.3 Sodium 139 Potassium 3.7 BUN 12 Creatinine 0.71 Glucose 116 H Magnesium 1.9 Total Bilirubin 0.5 AST 11 L ALT 19 Alkaline Phosphatase 60 Microbiology Data (last 24 hrs): 11/12/23 08:30 Nasopharnyx Influenza Type A Antigen Screen - Final 11/12/23 08:30 Nasopharnyx Influenza Type B Antigen Screen - Final <Pita Ewingjenni La - Last Filed: 11/12/23 10:48> - Physical Exam General: Alert, In no apparent distress, Mild distress HEENT: Atraumatic, Normocephalic Neck: Supple, JVD not distended Respiratory: Expiratory wheezes, Inspiratory wheezes Cardiovascular: No edema, Normal pulses Capillary refill: <2 Seconds Gastrointestinal: Normal bowel sounds, Soft and benign Musculoskeletal: No clubbing, No swelling Neurological: Normal speech, Normal strength at 5/5 x4 extr <Jospehine Mauricio - Last Filed: 11/14/23 07:06> Assessment & Plan - Advance Directives Does patient have a Living Will: No Does patient have a Durable POA for Healthcare: No <Fatuma Ewing - Last Filed: 11/12/23 10:48> - Plan Assessment plan Acute hypoxic respiratory failure secondary to COPD exacerbation, O2 2 L keep sats greater than 92%, Nebulizers, Solu-Medrol, History of asthma Follow-up with pulmonary after discharge Full code DVT Lovenox Diet regular Disposition Home independent prior to admission Discharge Plan: Home - Code Status/Comfort Care Code Status: Full Code Critical Care: No Time Spent Managing PTS Care (In Minutes): 55 <Josephine Mauricio - Last Filed: 11/14/23 07:06>
[2023-11-12] MEDS ORDERED: ACETAMINOPHEN 500 MG TAB PO PRN (11:00)
[2023-11-12] MEDS: METHYLPREDNISOLONE 125 MG INJ IV SCH (12:00)
[2023-11-12] MEDS: IPRATROPIUM BROM 0.5MG/2.5ML NEB SCH (13:00)
[2023-11-12] MEDS: ALBUTEROL 2.5 MG/3 ML NEB SOL NEB SCH (13:00)
[2023-11-12 14:03] VITALS: BMI 24.3
[2023-11-13 07:18] LABS: ALT/SGPT 16 U/L (13-56); AST/SGOT 8 U/L (15-37); Albumin 3.4 g/dL (3.4-5.0); Alkaline Phosphatase 52 U/L (45-117); Anion Gap 7.8 mEq/L (5.0-15.0); BUN Blood Urea Nitrogen 13 mg/dL (7-18); Bicarbonate 23 mEq/L (21-32); Bilirubin Total 0.7 mg/dL (0.2-1.0); Globulin 3.5 g/dL (2.3-3.5); Glomerular Filtration Rate 126 ml/min (=/>90); Glucose Level 148 mg/dL (74-106); Potassium 3.8 mEq/L (3.5-5.1); Protein, Total 6.9 g/dL (6.4-8.2); Sodium Level 136 mEq/L (136-145)
[2023-11-13 07:28] LABS: Troponin High Sensitivity < 3.0 pg/mL (<58.9)
[2023-11-13 07:45] LABS: Absolute Lymphocytes (CBC) 0.6 K/uL (0.7-4.9); Absolute Monocytes 0.3 K/uL (0.1-1.3); Absolute Neutrophil 10.2 K/uL (1.8-8.0); Basophils % 0.1 % (0-1.3); Hematocrit 43.6 % (36.0-45.0); Hemoglobin 14.3 g/dL (12.0-15.0); Lymphocytes % 5.6 % (15.3-44.8); MCH 32.2 pg (27.0-35.0); MCHC 32.7 g/dL (32.0-36.0); MCV 98.4 fL (80-100); MPV 8.3 fL (7.6-11.3); Monocytes % 2.5 % (3.3-12.3); Neutrophils % 91.8 % (41.7-73.7); Platelets 265 thou/uL (152-406); RBC Red Blood Cell Count 4.43 M/uL (3.86-4.86); Red Cell Distribution Width 13.8 % (12.1-15.2)
[2023-11-13 09:41] LABS: Band Neutrophils 2 % (0-1); Differential Total Cells Count 100; Lymphocytes 8 % (15-42); Monocytes 3 % (0-10); Segmented Neutrophils 87 % (40-80)
[2023-11-13 09:45] LABS: Blood Morphology Comment NOT SEEN (NOT SEEN); Platelet Estimate ADEQ
[2023-11-13 11:01] VITALS: O2SAT 99
[2023-11-13 16:23] VITALS: BP 116/73; TEMP 98
--- NOTE | 2023-11-13 16:55 | P.DS ---
Admission Date: 11/12/23 Discharge Date: 11/13/23 Disposition: ROUTINE DISCHARGE Discharge Condition: GOOD Brief History of Present Illness: 38-year-old female with a past medical history asthma, tobacco use presents to the emergency room with shortness of breath. She reports shortness of breath that started after she woke up. She reports shortness of breath is worse with exertion, reports intermittent chest pain that is worse with shortness of breath. No reported chest pain radiation. Patient was treated with albuterol nebulizer in the ER. Solu-Medrol. No reported fever, nausea vomiting diarrhea, congestion problem plan to admit for acute hypoxic respiratory failure secondary to asthma exacerbation. ,Fatuma La - Last Filed: 11/12/23 10:48> - Physical Exam General: Alert, In no apparent distress HEENT: Atraumatic, Normocephalic Neck: Supple, JVD not distended Respiratory: Equal unlabored Cardiovascular: No edema, Normal pulses Capillary refill: <2 Seconds Gastrointestinal: Normal bowel sounds, Soft and benign Musculoskeletal: No clubbing, No swelling Neurological: Normal speech, Normal strength at 5/5 x4 extr Hospital Course: 38-year-old female with a past medical history of asthma, tobacco use, presented to the emergency room with shortness of breath. She was noted to have asthma exacerbation, acute hypoxic respiratory failure. Treatment improved with IV Solu-Medrol, nebulizers. Patient is tolerating diet, stable for discharge follow-up with pulmonary after discharge return to the emergency room for worsening of Assessment plan Asthma exacerbation Acute hypoxic respiratory failure secondary to asthma exacerbation Tobacco use Follow-up with pulmonary after discharge Follow-up with primary care after discharge Educated on tobacco cessation year-old female patient presented with Was noted to have Condition improved with Patient tolerating diet, stable for discharge to home with follow-up appointment with primary care physician. Continue home medicines as previously prescribed GOAL: Clear understanding of disease process INSTRUCTIONS: Physician Discharge Instructions: -Follow-up with PCP in 1 to 2 weeks -Please call Dr. Ewing at [phone] if any questions regarding hospital stay -Please call nursing station at [phone] if any nursing or medication questions -Return to the emergency room if symptoms worsen Diet: ADA, low sodium Activity: Fall precautions Vital Signs/Physical Exam: Temp Pulse Resp BP Pulse Ox 98.0 F 75 14 116/73 97 11/13/23 16:00 11/13/23 16:00 11/13/23 16:00 11/13/23 16:00 11/13/23 16:00 Laboratory Data at Discharge: WBC 11.10 thou/uL (4.3-10.9) H 11/13/23 06:22 Hgb 14.3 g/dL (12.0-15.0) 11/13/23 06:22 Hct 43.6 % (36.0-45.0) 11/13/23 06:22 Plt Count 265 thou/uL (152-406) 11/13/23 06:22 PT 10.2 SECONDS (9.5-12.5) 11/12/23 08:32 INR 0.93 11/12/23 08:32 APTT 28.3 SECONDS (24.3-36.9) 11/12/23 08:32 Sodium 136 mEq/L (136-145) 11/13/23 06:22 Potassium 3.8 mEq/L (3.5-5.1) 11/13/23 06:22 BUN 13 mg/dL (7-18) 11/13/23 06:22 Creatinine 0.44 mg/dL (0.55-1.02) L 11/13/23 06:22 Glucose 148 mg/dL (74-106) H 11/13/23 06:22 Magnesium 2.0 mg/dL (1.6-2.4) 11/13/23 06:22 Total Bilirubin 0.7 mg/dL (0.2-1.0) 11/13/23 06:22 AST 8 U/L (15-37) L 11/13/23 06:22 ALT 16 U/L (13-56) 11/13/23 06:22 Alkaline Phosphatase 52 U/L (45-117) 11/13/23 06:22 Home Medications: Albuterol Inhaler [Ventolin Inhaler*] 2 puff IH Q6H PRN #1 inh 11/13/23 predniSONE [Deltasone] 20 mg PO BID #20 tab 11/13/23 New Medications: predniSONE [Deltasone] 20 mg PO BID #20 tab Albuterol Inhaler [Ventolin Inhaler*] 2 puff IH Q6H PRN #1 inh PRN Reason: Shortness Of Breath Diet: AHA Activity: Fall precautions Followup: NONE,NONE [Primary Care Provider] - 1 Week Time spent managing pt's care (in minutes): 55
== END 2023-11-13 16:08 | disposition home or self-care (01) ==
LOC: ER 08:11 → ERHOLD 10:45 → INTOOBSV 10:45 → 4TH 20:01
PROVIDERS: ADMIT Hospitalist; ATTEND Hospitalist
DX: J45.901 Unspecified asthma with (acute) exacerbation (principal); F17.210 Nicotine dependence, cigarettes, uncomplicated; Z11.52 Encounter for screening for COVID-19
CPT/HCPCS: 36415; 36600; 71045; 71275; 80048; 80053; 80076; 81025; 82805; 83605; 83735; 83880; 84484; 85025; 85610; 85730; 87040; 87804; 87811; 93005; 94640; 96374; 99285; G0378; J2930; J7613; J7644; Q9967

== ENCOUNTER 2024-03-20 08:04 | Emergency (ER) | payer SELFPAY ==
[2024-03-20] MEDS ORDERED: predniSONE 20 MG TAB ONE (08:33)
[2024-03-20] MEDS ORDERED: ALBUTEROL 2.5 MG/3 ML NEB SOL ONE (08:36)
[2024-03-20] MEDS ORDERED: IPRATROPIUM BROM 0.5MG/2.5ML ONE (08:36)
[2024-03-20 09:12] LABS: Absolute Eosinophils 0.2 K/uL (0-0.5); Absolute Lymphocytes (CBC) 1.3 K/uL (0.7-4.9); Absolute Monocytes 0.5 K/uL (0.1-1.3); Absolute Neutrophil 5.5 K/uL (1.8-8.0); Basophils % 0.3 % (0-1.3); Eosinophils % 3.3 % (0-4.4); Hematocrit 42.5 % (36.0-45.0); Hemoglobin 13.9 g/dL (12.0-15.0); Lymphocytes % 17.1 % (15.3-44.8); MCH 32.6 pg (27.0-35.0); MCHC 32.7 g/dL (32.0-36.0); MCV 99.6 fL (80-100); MPV 7.3 fL (7.6-11.3); Monocytes % 6.6 % (3.3-12.3); Neutrophils % 72.7 % (41.7-73.7); Platelets 295 thou/uL (152-406); RBC Red Blood Cell Count 4.27 M/uL (3.86-4.86); Red Cell Distribution Width 13.2 % (12.1-15.2)
--- NOTE | 2024-03-20 09:21 | RAD REPORT ---
EXAM DESCRIPTION: Izabel Single View03/20/2024 9:05 am CLINICAL HISTORY: Shortness of breath COMPARISON: October 2023 FINDINGS: The lungs appear clear of acute infiltrate. The heart is normal size IMPRESSION: No acute abnormalities displayed
[2024-03-20 09:32] LABS: ALT/SGPT 19 U/L (13-56); AST/SGOT 14 U/L (15-37); Albumin 3.7 g/dL (3.4-5.0); Albumin/Globulin Ratio 1.1 (1.1-1.8); Alkaline Phosphatase 55 U/L (45-117); Anion Gap 7.6 mEq/L (5.0-15.0); BUN Blood Urea Nitrogen 6 mg/dL (7-18); Bicarbonate 26 mEq/L (21-32); Bilirubin Total 0.5 mg/dL (0.2-1.0); Globulin 3.3 g/dL (2.3-3.5); Glomerular Filtration Rate 116 ml/min (=/>90); Glucose Level 131 mg/dL (74-106); Magnesium 1.9 mg/dL (1.6-2.4); NT PRO-BNP 106 pg/mL (<125); Potassium 3.6 mEq/L (3.5-5.1); Sodium Level 140 mEq/L (136-145); Troponin High Sensitivity 4.7 pg/mL (<58.9)
[2024-03-20 09:33] LABS: Bilirubin Direct < 0.2 mg/dL (0-0.2); Bilirubin Indirect, Calculated 0.3 mg/dL (0.2-0.8)
--- NOTE | 2024-03-20 09:54 | EDPHYS ---
Physician Documentation [facility] Name: Arun Sung Age: 38 yrs Sex: Female : 1985 Arrival Date: 03/20/2024 Time: 08:04 Bed 13 Private MD: ED Physician Vinicio Streeter HPI: 03/20 08:53 This 38 yrs old Female presents to ER via Ambulatory with complaints of Breathing rt Difficulty, Chest Pain. 08:53 Patient presents to the ED with cough, difficulty breathing, wheezing started about 2 rt AM. Patient has had a similar symptoms previously. Did not take any medications for this. Reports a chest tightness. Denies other acute complaints at this time, symptoms are moderate in severity, no other aggravating or elevating factors.. SOFTWARE DEVELOPMENT INTERN: 08: LMP 03/20/2024, unknown iw Historical: - Allergies: 08: No Known Allergies; iw - Home Meds: 08: None [Active]; iw - PMHx: 08: None; iw - PSHx: 08: None; iw - Immunization history:: Adult Immunizations not up to date. - Infectious Disease History:: Denies. - Social history:: Smoking status: Patient uses street drugs, marijuana. - Family history:: not pertinent. ROS: 08:53 Constitutional: Negative for fever, chills, and weight loss, Abdomen/GI: Negative for rt abdominal pain, nausea, vomiting, diarrhea, and constipation, MS/Extremity: Negative for injury and deformity, Skin: Negative for injury, rash, and discoloration, Neuro: Negative for headache, weakness, numbness, tingling, and seizure, Psych: Negative for depression, anxiety, suicide ideation, homicidal ideation, and hallucinations, 08:53 Cardiovascular: Positive for chest pain, Negative for edema, 08:53 Respiratory: Positive for cough, shortness of breath, wheezing, Exam: 08:53 Constitutional: This is a well developed, well nourished patient who is awake, alert, rt and in no acute distress. Head/Face: Normocephalic, atraumatic. Chest/axilla: Normal chest wall appearance and motion. Nontender with no deformity. No lesions are appreciated. Cardiovascular: Regular rate and rhythm with a normal S1 and S2. No gallops, murmurs, or rubs. Normal PMI, no JVD. No pulse deficits. Abdomen/GI: Soft, non-tender, with normal bowel sounds. No distension or tympany. No guarding or rebound. No evidence of tenderness throughout. Skin: Warm, dry with normal turgor. Normal color with no rashes, no lesions, and no evidence of cellulitis. MS/ Extremity: Pulses equal, no cyanosis. Neurovascular intact. Full, normal range of motion. Neuro: Awake and alert, GCS 15, oriented to person, place, time, and situation. Cranial nerves II-XII grossly intact. Motor strength 5/5 in all extremities. Sensory grossly intact. Cerebellar exam normal. Normal gait. 08:53 ECG was reviewed by the Attending Physician. 08:53 Respiratory: Wheezes, diminished breath sounds in all lung kirkpatrick, no respiratory distress, Vital Signs: 08:21 BP 146 / 104; Pulse 89; Resp 18; Temp 98.5; Pulse Ox 95% on R/A; Weight 74.84 kg; iw Height 5 ft. 7 in. ; Pain 5/10; 09:08 BP 113 / 69; Pulse 75; Resp 19; Temp 98.4; Pulse Ox 97% ; dd2 10:14 BP 119 / 73; Pulse 74; Resp 16; Temp 98.3; Pulse Ox 98% ; dd2 08:21 Body Mass Index 25.84 (74.84 kg, 170.18 cm) iw 08:21 Pain Scale: Adult iw MDM: 08:09 Patient medically screened. rt 09:55 Differential diagnosis: Bronchospasm, bronchitis, pneumonia. Antibiotic administration: rt Not indicated, the patient does not have an appreciated infiltrate. Data reviewed: vital signs, nurses notes, lab test result(s), EKG, radiologic studies. Consideration of Admission/Observation Escalation of care including admission/observation considered. Normal oxygenation, significantly improving symptoms, labs, x-ray unremarkable, no indications for admission at this time.. I considered the following discharge prescriptions or medication management in the emergency department Medications were administered in the Emergency Department. See MAR. Independent interpretation of the following test(s) in the Emergency Department X-Ray: My interpretation is No pneumonia seen on interpretation of x-ray images. Test considered but Not performed: CT: Low suspicion for PE, PE RC negative, CT angiogram not. Counseling: I had a detailed discussion with the patient and/or guardian regarding the historical points, exam findings, and any diagnostic results supporting the discharge/admit diagnosis, lab results, radiology results, the need for outpatient follow up, to return to the emergency department if symptoms worsen or persist or if there are any questions or concerns that arise at home, smoking cessation. Response to treatment: the patient's symptoms have markedly improved after treatment. 03/20 08:20 Order name: Basic Metabolic Panel; Complete Time: 09:37 rt 03/20 08:20 Order name: CBC with Diff; Complete Time: 09:24 rt 03/20 08:20 Order name: LFT's; Complete Time: 09:37 rt 03/20 08:20 Order name: Magnesium; Complete Time: 09:37 rt 03/20 08:20 Order name: NT PRO-BNP; Complete Time: 09:37 rt 03/20 08:20 Order name: Troponin HS; Complete Time: 09:37 rt 03/20 08:20 Order name: XRAY Chest (1 view); Complete Time: 09:24 rt 03/20 08:20 Order name: Cardiac monitoring; Complete Time: 08:47 rt 03/20 08:20 Order name: EKG - Nurse/Tech; Complete Time: 08:20 rt 03/20 08:20 Order name: IV Saline Lock; Complete Time: 08:47 rt 03/20 08:20 Order name: Labs collected and sent; Complete Time: 08:47 rt 03/20 08:20 Order name: O2 Per Protocol; Complete Time: 08:47 rt 03/20 08:20 Order name: O2 Sat Monitoring; Complete Time: 08:47 rt 03/20 08:42 Order name: Labs - recollect needed: purple and green; Complete Time: : bc6 EC:53 Rate is 70 beats/min. Rhythm is regular, Normal Sinus Rhythm with No ectopy. QRS [place] rt is Normal. [place] interval is normal. QRS interval is normal. QT interval is normal. No Q waves. No ST changes noted. Interpreted by me. Administered Medications: : Drug: DuoNeb Nebulize (3:1) (2.5 mg - 0.5 mg) 3 ml Nebulizer once Route: Nebulizer; dd2 :17 Follow up: Response: No adverse reaction dd2 :47 Drug: predniSONE PO 40 mg PO once Route: PO; dd2 09:17 Follow up: Response: No adverse reaction dd2 Disposition Summary: 03/20/24 09:53 Discharge Ordered Notes: Location: Home rt Problem: new rt Symptoms: have improved rt Condition: Stable rt Diagnosis - Acute bronchospasm rt Followup: rt - With: Private Physician - When: 2 - 3 days - Reason: Discharge Instructions: - Discharge Summary Sheet rt - Bronchospasm, Adult rt Forms: - Medication Reconciliation Form rt - Antibiotic Education rt - Prescription Opioid Use rt - Patient Portal Instructions rt - Leadership Thank You Letter rt Prescriptions: - albuterol sulfate 90 mcg/actuation Inhalation HFA Aerosol Inhaler - inhale 3 puff INHALATION route every 4 to 6 hours as needed for wheezing; 2 rt Each; Refills: 0, Product Selection Permitted - Prednisone 20 mg Oral tablet - take 2 tablets ORAL route once daily for 4 days; 8 tablet; Refills: 0, Product rt Selection Permitted Signatures: Dispatcher [employer] Imelda Villalpando, DONALD RN iw Vinicio Streeter MD MD rt Randa Alcala [facility] MICHEL MARTINEZ RN RN dd2 Corrections: (The following items were deleted from the chart) 08:20 08:20 BASIC METABOLIC PANEL+C.LAB.BRZ ordered. EDMS EDMS 08:20 08:20 CBC+H.LAB.BRZ ordered. EDMS EDMS 08:20 08:20 HEPATIC FUNCTION+C.LAB.BRZ ordered. EDMS EDMS 08:20 08:20 MAGNESIUM+C.LAB.BRZ ordered. EDMS EDMS 08:20 08:20 PROBNP+C.LAB.BRZ ordered. EDMS EDMS 08:20 08:20 Troponin High Sensitivity+C.LAB.BRZ ordered. EDMS EDMS 08:21 08:21 Chest Single View+RAD.RAD.BRZ ordered. EDMS EDMS
--- NOTE | 2024-03-20 09:54 | ER ---
Nurse's Notes [facility] Name: Arun Sung Age: 38 yrs Sex: Female : 1985 Arrival Date: 03/20/2024 Time: 08:04 Bed 13 Private MD: Diagnosis: Acute bronchospasm Presentation: 03/20 08:21 Chief complaint: Patient states: difficulty breathing and chest tightness since 2 am. iw Coronavirus screen: Client presents with at least one sign or symptom that may indicate coronavirus-19. Ebola Screen: No symptoms or risks identified at this time. 08:21 Method Of Arrival: Ambulatory iw 08:23 Risk Assessment: Do you want to hurt yourself or someone else? Patient reports no iw desire to harm self or others. Onset of symptoms was March 20, 2024. 08:23 Acuity: DEBI 3 iw 10:15 Initial Sepsis Screen: Does the patient meet any 2 criteria? No. Patient's initial dd2 sepsis screen is negative. Does the patient have a suspected source of infection? No. Patient's initial sepsis screen is negative. Triage Assessment: 10:15 Respiratory: Onset: The symptoms/episode began/occurred this morning, the patient has dd2 moderate shortness of breath. 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 - Infectious Disease History:: Denies. - Social history:: Smoking status: Patient uses street drugs, marijuana. - Family history:: not pertinent. Screenin:08 [facility] ED Fall Risk Assessment (Adult) History of falling in the last 3 months, dd2 including since admission No falls in past 3 months (0 pts) Confusion or Disorientation No (0 pts) Intoxicated or Sedated No (0 pts) Impaired Gait No (0 pts) Mobility Assist Device Used No (0 pt) Altered Elimination No (0 pt) Score/Fall Risk Level 0 - 2 = Low Risk. Abuse screen: Denies threats or abuse. Nutritional screening: No deficits noted. Tuberculosis screening: No symptoms or risk factors identified. Assessment: 09:08 General: Appears uncomfortable, Behavior is calm, cooperative. Pain: Denies pain. dd2 Neuro: No deficits noted. Cardiovascular: Reports chest pain, shortness of breath, Rhythm is regular. Respiratory: Reports shortness of breath at rest on exertion cough that is productive, Airway is patent Respiratory effort is unlabored, Breath sounds with wheezes bilaterally. GI: No deficits noted. : No deficits noted. EENT: No deficits noted. Derm: No deficits noted. Musculoskeletal: No deficits noted. Vital Signs: 08:21 BP 146 / 104; Pulse 89; Resp 18; Temp 98.5; Pulse Ox 95% on R/A; Weight 74.84 kg; iw Height 5 ft. 7 in. ; Pain 5/10; 09:08 BP 113 / 69; Pulse 75; Resp 19; Temp 98.4; Pulse Ox 97% ; dd2 10:14 BP 119 / 73; Pulse 74; Resp 16; Temp 98.3; Pulse Ox 98% ; dd2 08:21 Body Mass Index 25.84 (74.84 kg, 170.18 cm) iw 08:21 Pain Scale: Adult iw ED Course: 08:06 Patient arrived in ED. mg5 08:08 Vinicio Streeter MD is Attending Physician. rt 08:13 MICHEL MARTINEZ, RN is Primary Nurse. dd2 08:23 Triage completed. iw 08:23 Arm band placed on. iw 09:07 XRAY Chest (1 view) In Process Unspecified. EDMS 09:07 Basic Metabolic Panel Sent. dd2 09:07 CBC with Diff Sent. dd2 09:07 LFT's Sent. dd2 09:07 Magnesium Sent. dd2 09:07 NT PRO-BNP Sent. dd2 09:07 Troponin HS Sent. dd2 09:08 Patient has correct armband on for positive identification. Bed in low position. Call dd2 light in reach. Side rails up X 1. Provided Education on: call light, medications, procedures. Client placed on continuous cardiac and pulse oximetry monitoring. NIBP monitoring applied. patient monitor on. Door closed. Warm blanket given. 09:08 No provider procedures requiring assistance completed. Inserted saline lock: 20 gauge dd2 in right antecubital area, using aseptic technique. Missed attempt(s): 20 gauge in right antecubital area. Bleeding controlled, band aid applied, catheter tip intact. Patient maintains SpO2 saturation greater than 95% on room air. 10:14 IV discontinued, intact, bleeding controlled, No redness/swelling at site. Pressure dd2 dressing applied. Administered Medications: 08:47 Drug: DuoNeb Nebulize (3:1) (2.5 mg - 0.5 mg) 3 ml Nebulizer once Route: Nebulizer; dd2 09:17 Follow up: Response: No adverse reaction dd2 08:47 Drug: predniSONE PO 40 mg PO once Route: PO; dd2 09:17 Follow up: Response: No adverse reaction dd2 Medication: 09:08 VIS not applicable for this client. dd2 Outcome: :53 Discharge ordered by . rt 10:14 Discharged to home ambulatory, dd2 10:14 Condition: stable 10:14 Discharge instructions given to patient, Instructed on discharge instructions, follow up and referral plans. medication usage, Demonstrated understanding of instructions, follow-up care, medications, Prescriptions given X 2, 10:15 Patient left the ED. dd2 Signatures: Dispatcher [employer] EDImelda Patrick RN RN iw Vinicio Streeter MD MD rt [place], [place] mg5 MICHEL MARTINEZ RN RN dd2
[2024-03-20 10:26] VITALS: BP 119/73; TEMP 98.3; O2SAT 98
--- NOTE | 2024-03-21 13:32 | EKG ---
Test Date: 2024-03-20 Test Time: 08:16:23 Senior Embedded Software Engineer: JAELYN MEASUREMENT RESULTS: Intervals: Rate: 70 IL: 110 QRSD: 72 QT: 416 QTc: 449 [place]: P: 40 IL: 110 QRS: 72 T: 36 INTERPRETIVE STATEMENTS: Sinus rhythm with sinus arrhythmia with short IL Septal infarct, age undetermined Abnormal ECG Compared to ECG 11/12/2023 08:23:40 Short IL interval now present Myocardial infarct finding now present ST (T wave) deviation no longer present Electronically Signed On 03-21-24 13:28:24 CDT by Angus Galan
== END 2024-03-20 10:15 | disposition home or self-care (01) ==
LOC: ER 08:04
DX: J98.01 Acute bronchospasm (principal); F12.90 Cannabis use, unspecified, uncomplicated
CPT/HCPCS: 36415; 71045; 80048; 80076; 83735; 83880; 84484; 85025; 93005; 99285; J7512; J7613; J7644

== ENCOUNTER 2024-05-08 05:04 | Emergency (ER) | payer SELFPAY ==
[2024-05-08] MEDS ORDERED: LORazepam 2 MG/ML VIAL ONE (05:19)
[2024-05-08] MEDS ORDERED: IPRATROPIUM BROM 0.5MG/2.5ML ONE (05:19)
[2024-05-08] MEDS ORDERED: ALBUTEROL 2.5 MG/3 ML NEB SOL ONE (05:19)
[2024-05-08] MEDS ORDERED: METHYLPREDNISOLONE 125 MG INJ ONE (05:19)
[2024-05-08] MEDS ORDERED: Magnesium Sulfate 2gm IVPB 2 G/50 ML BAG IV ONE (05:20)
[2024-05-08] MEDS ORDERED: GUAIFENESIN/DM 5 ML UCUP ONE (05:27)
[2024-05-08 05:35] LABS: Absolute Eosinophils 0.2 K/uL (0-0.5); Absolute Lymphocytes (CBC) 1.7 K/uL (0.7-4.9); Absolute Monocytes 0.4 K/uL (0.1-1.3); Absolute Neutrophil 2.6 K/uL (1.8-8.0); Basophils % 0.4 % (0-1.3); Eosinophils % 4.9 % (0-4.4); Hematocrit 44.2 % (36.0-45.0); Hemoglobin 14.9 g/dL (12.0-15.0); Lymphocytes % 34.7 % (15.3-44.8); MCHC 33.7 g/dL (32.0-36.0); MCV 97.9 fL (80-100); Monocytes % 8.2 % (3.3-12.3); Neutrophils % 51.8 % (41.7-73.7); Nucleated Red Blood Cells % 0.1 % (0-0); Platelets 259 thou/uL (152-406); RBC Red Blood Cell Count 4.51 M/uL (3.86-4.86); Red Cell Distribution Width 12.9 % (12.1-15.2)
[2024-05-08 05:38] LABS: Protime INR 0.89
[2024-05-08 05:52] LABS: ALT/SGPT 15 U/L (13-56); AST/SGOT < 10 U/L (15-37); Albumin 3.7 g/dL (3.4-5.0); Alkaline Phosphatase 46 U/L (45-117); Anion Gap 7.7 mEq/L (5.0-15.0); BUN Blood Urea Nitrogen 11 mg/dL (7-18); Bicarbonate 27 mEq/L (21-32); Bilirubin Direct < 0.2 mg/dL (0-0.2); Bilirubin Indirect, Calculated 0.2 mg/dL (0.2-0.8); Bilirubin Total 0.4 mg/dL (0.2-1.0); Creatine Phosphokinase 119 U/L (26-192); Globulin 3.6 g/dL (2.3-3.5); Glomerular Filtration Rate 113 ml/min (=/>90); Glucose Level 123 mg/dL (74-106); Lipase 20 U/L (13-75); NT PRO-BNP 44 pg/mL (<125); Potassium 3.7 mEq/L (3.5-5.1); Protein, Total 7.3 g/dL (6.4-8.2); Sodium Level 141 mEq/L (136-145); Troponin High Sensitivity 4.3 pg/mL (<58.9)
--- NOTE | 2024-05-08 06:29 | EDPHYS ---
Physician Documentation [facility] Name: Arun Sung Age: 39 yrs Sex: Female : 1985 Arrival Date: 05/08/2024 Time: 05:04 Bed 7 Private MD: ED Physician Marcus Hernandez HPI: 05/08 05:06 This 39 yrs old Other Race Female presents to ER via Unassigned with complaints of sp4 Breathing Difficulty, Asthma Exacerbation. 21:43 Patient with PMH of Asthma and history of tobacco use presents with acute dyspnea, sp4 wheezing and other feeling unwell. . 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 - Infectious Disease History:: Denies. - Social history:: Smoking status: Patient reports the use of cigarette tobacco products, smokes one-half pack cigarettes per day, Patient uses street drugs, marijuana, Patient/guardian denies using alcohol. - Family history:: not pertinent. ROS: 21:43 Constitutional: Negative for fever, chills, and weight loss, positive for dyspnea, sp4 wheezing, cough 21:43 All other systems are negative, Exam: 21:43 Constitutional: This is a well developed, well nourished patient who is awake, alert, sp4 and in no acute distress. Head/Face: Normocephalic, atraumatic. Eyes: Pupils equal round and reactive to light, extra-ocular motions intact. Lids and lashes normal. Conjunctiva and sclera are not injected. Cornea within normal limits. Periorbital areas with no swelling, redness, or edema. ENT: Nares patent. No nasal discharge, no septal abnormalities noted. Tympanic membranes are normal and external auditory canals are clear. Oropharynx with no redness, swelling, or masses, exudates, or evidence of obstruction, uvula midline. Mucous membranes moist. Neck: Trachea midline, no thyromegaly or masses palpated, and no cervical lymphadenopathy. Supple, full range of motion without nuchal rigidity, or vertebral point tenderness. Chest/axilla: Normal chest wall appearance and motion. Nontender with no deformity. No lesions are appreciated. Cardiovascular: Regular rate and rhythm with a normal S1 and S2. No gallops, murmurs, or rubs. Normal PMI, no JVD. No pulse deficits. Respiratory: Lungs have equal breath sounds bilaterally, Bilateral mild to moderate expiratory wheezing. NO retractions. Abdomen/GI: Soft, with normal bowel sounds. No distension or tympany. No guarding or rebound. No evidence of tenderness throughout. Back: No spinal tenderness. No costovertebral tenderness. Skin: Warm, dry with normal turgor. Normal color with no rashes, no lesions, and no evidence of cellulitis. MS/ Extremity: Pulses equal, no cyanosis. Neurovascular intact. Full, normal range of motion. Neuro: Awake and alert, GCS 15, oriented to person, place, time, and situation. Cranial nerves II-XII grossly intact. Motor strength 5/5 in all extremities. Sensory grossly intact. Psych: Awake, alert, with orientation to person, place and time. Behavior, mood, and affect are within normal limits Vital Signs: 05:21 BP 134 / 82; Pulse 91; Resp 21 S; Temp 98.4(O); Pulse Ox 95% on R/A; Weight 63.5 kg lg3 (R); Height 5 ft. 4 in. (R); Pain 0/10; 06:01 BP 123 / 76; Pulse 76; Resp 18; Temp 98.4; Pulse Ox 100% on Nebulizer Mask; Pain 0/10; bm8 06:33 BP 125 / 81; Pulse 97; Resp 17; Temp 98.4; Pulse Ox 96% on R/A; Pain 0/10; bm8 05:21 Body Mass Index 24.03 (63.50 kg, 162.56 cm) lg3 05:21 Pain Scale: Adult lg3 06:01 Pain Scale: Adult bm8 06:33 Pain Scale: Adult bm8 Desean Coma Score: 06:01 Eye Response: spontaneous(4). Motor Response: obeys commands(6). Verbal Response: bm8 oriented(5). Total: 15. 06:33 Eye Response: spontaneous(4). Motor Response: obeys commands(6). Verbal Response: bm8 oriented(5). Total: 15. 21:43 Eye Response: spontaneous(4). Motor Response: obeys commands(6). Verbal Response: sp4 oriented(5). Total: 15. MDM: 05:09 Patient medically screened. sp4 21:45 Differential diagnosis: Anemia Anxiety Reaction asthma, Bronchitis pneumonia, sp4 Psychogenic. Data reviewed: vital signs, nurses notes, lab test result(s). ED course: Wheezing has improved, patient stable for discharge home with medications listed below . . 05/08 05:08 Order name: BMP; Complete Time: 06:04 sp4 05/08 05:08 Order name: CBC with Diff; Complete Time: 06:04 sp4 05/08 05:08 Order name: CPK; Complete Time: 06: sp4 05/08 05:08 Order name: Hepatic Function; Complete Time: 06:04 sp4 05/08 05:08 Order name: Lipase; Complete Time: 06:04 sp4 05/08 05:08 Order name: Magnesium; Complete Time: 06: sp4 05/08 05:08 Order name: NT PRO-BNP; Complete Time: 06:04 sp4 05/08 05:08 Order name: PT-INR; Complete Time: 06:04 sp4 05/08 05:08 Order name: Ptt, Activated; Complete Time: 06: sp4 05/08 05:08 Order name: Troponin HS; Complete Time: 06: sp4 05/08 05:08 Order name: Cardiac monitoring; Complete Time: 05:25 sp4 05/08 05:08 Order name: IV Saline Lock; Complete Time: 05: sp4 05/08 05:08 Order name: Labs collected and sent; Complete Time: 05: sp4 05/08 05:08 Order name: O2 Per Protocol; Complete Time: 05: sp4 05/08 05:08 Order name: O2 Sat Monitoring; Complete Time: 05:25 sp4 Administered Medications: 05:28 Drug: Magnesium Sulfate IVPB 2 grams IVPB once over 2 hrs Route: IVPB; Infused Over: 2 bm8 hrs; Site: left antecubital; 06:36 Follow up: Response: No adverse reaction; IV Status: Completed infusion; IV Intake: [id number] 05:28 Drug: Ativan IVP 1 mg IVP once Route: IVP; Site: left antecubital; bm8 06:36 Follow up: Response: No adverse reaction bm8 05:28 Drug: Dextromethorphan-Guaifenesin PO Liquid 10 mg-100 mg/5 mL 10 ml PO once Route: PO; bm8 06:36 Follow up: Response: No adverse reaction bm8 05:29 Drug: Albuterol Inhalation 2.5 mg Inhalation every 20 minutes x3 Route: Inhalation; bm8 05:29 Drug: Ipratropium Inhalation Aerosol 0.5 mg Inhalation once; Every 20 min for a total bm8 of 3 treatments x3 Route: Inhalation; 05:29 Drug: MethylPrednisoLONE IVP 125 mg IVP once Route: IVP; Site: left antecubital; bm8 06:37 Follow up: Response: No adverse reaction bm8 06:01 Drug: Albuterol Inhalation 2.5 mg Inhalation every 20 minutes x3 Route: Inhalation; bm8 06:01 Drug: Ipratropium Inhalation Aerosol 0.5 mg Inhalation once; Every 20 min for a total bm8 of 3 treatments x3 Route: Inhalation; 06:23 Drug: Albuterol Inhalation 2.5 mg Inhalation every 20 minutes x3 Route: Inhalation; bm8 06:36 Follow up: Response: No adverse reaction bm8 06:24 Drug: Ipratropium Inhalation Aerosol 0.5 mg Inhalation once; Every 20 min for a total bm8 of 3 treatments x3 Route: Inhalation; 06:37 Follow up: Response: No adverse reaction bm8 Disposition Summary: 05/08/24 06:29 Discharge Ordered Notes: Location: Home sp4 Problem: new sp4 Symptoms: have improved sp4 Condition: Stable sp4 Diagnosis - Moderate persistent asthma with (acute) exacerbation sp4 Followup: sp4 - With: Raimundo Ledezma DO - When: 7 - 10 days - Reason: Recheck today's complaints Discharge Instructions: - Discharge Summary Sheet sp4 - Asthma, Adult sp4 Forms: - Patient Portal Instructions sp4 Prescriptions: - Ventolin HFA 90 mcg/actuation Inhalation HFA Aerosol Inhaler - inhale 2 inhalation INHALATION route every 4 hours Dispense 1 inhaler with sp4 Spacer, Use [id number] PRN dyspnea; 1 unit; Refills: 0, Product Selection Permitted - fluticasone propionate 110 mcg/actuation Inhalation HFA Aerosol Inhaler - inhale 1 puff INHALATION route 2 times per day Dispense 1 Inhaler; 1 unit; sp4 Refills: 0, Product Selection Permitted - Albuterol Sulfate 2.5 mg /3 mL (0.083 %) Inhalation Solution for Nebulization - inhale 1 unit NEBULIZATION route every 4 hours As needed Dispense with sp4 Nebulizer and Adult mask , Dispense 50 vials or Two boxes; 50 unit; Refills: 0, Product Selection Permitted - Prednisone 20 mg Oral Tablet - take 2 tablets ORAL route once daily for 5 days; 10 tablet; Refills: 0, Product sp4 Selection Permitted Signatures: Dispatcher [employer] EDMS Elke Shen RN RN lg3 Marcus Hernandez MD MD sp4 Andrew Pepe RN RN bm8 Corrections: (The following items were deleted from the chart) 05:09 05:09 BASIC METABOLIC PANEL+C.LAB.BRZ ordered. EDMS EDMS 05:09 05:09 CBC+H.LAB.BRZ ordered. EDMS EDMS 05:09 05:09 CREATINE PHOSPHOKINASE+C.LAB.BRZ ordered. EDMS EDMS 05:09 05:09 HEPATIC FUNCTION+C.LAB.BRZ ordered. EDMS EDMS 05:09 05:09 LIPASE+C.LAB.BRZ ordered. EDMS EDMS 05:09 05:09 MAGNESIUM+C.LAB.BRZ ordered. EDMS EDMS 05:09 05:09 PROBNP+C.LAB.BRZ ordered. EDMS EDMS 05:09 05:09 PROTIME (+INR)+COAG.LAB.BRZ ordered. EDMS EDMS 05:09 05:09 PTT, ACTIVATED+COAG.LAB.BRZ ordered. EDMS EDMS 05:09 05:09 Troponin High Sensitivity+C.LAB.BRZ ordered. EDMS EDMS 05:16 05:08 EKG - Nurse/Tech ordered. sp4 sp4
--- NOTE | 2024-05-08 06:29 | ER ---
Nurse's Notes [facility] Name: Arun Sung Age: 39 yrs Sex: Female : 1985 Arrival Date: 05/08/2024 Time: 05:04 Bed 7 Private MD: Diagnosis: Moderate persistent asthma with (acute) exacerbation Presentation: 05/08 05:21 Chief complaint: Patient states: SOB X1 hr. Coronavirus screen: Client denies travel lg3 out of the [place] in the last 14 days. At this time, the client does not indicate any symptoms associated with coronavirus-19. Ebola Screen: No symptoms or risks identified at this time. Initial Sepsis Screen: Does the patient meet any 2 criteria? No. Patient's initial sepsis screen is negative. Does the patient have a suspected source of infection? No. Patient's initial sepsis screen is negative. Risk Assessment: Do you want to hurt yourself or someone else? Patient reports no desire to harm self or others. Onset of symptoms was May 08, 2024. 05:21 Method Of Arrival: Ambulatory lg3 05:21 Acuity: DEBI 3 lg3 Triage Assessment: 05:22 General: Appears in no apparent distress. comfortable, Behavior is cooperative, lg3 anxious. Pain: Denies pain. EENT: No deficits noted. No signs and/or symptoms were reported regarding the EENT system. Neuro: No deficits noted. [place]nally Agitation-Sedation Scale (RASS): 0 - Alert and Calm Level of Consciousness is awake, alert, obeys commands, Oriented to person, place, time, situation. Cardiovascular: No deficits noted. Denies chest pain, Capillary refill < 3 seconds Clubbing of nail beds is absent JVD is absent Patient's skin is warm and dry. Respiratory: Reports shortness of breath Airway is patent Respiratory effort is even, Respiratory pattern is hyperventilation Onset: The symptoms/episode began/occurred this morning, the patient has mild shortness of breath. GI: No deficits noted. No signs and/or symptoms were reported involving the gastrointestinal system. : No deficits noted. No signs and/or symptoms were reported regarding the genitourinary system. Derm: No deficits noted. No signs and/or symptoms reported regarding the dermatologic system. Skin is intact, is healthy with good turgor, Skin is dry, Skin is normal, Skin temperature is warm. Musculoskeletal: No deficits noted. No signs and/or symptoms reported regarding the musculoskeletal system. Circulation, motion, and sensation intact. Range of motion: intact in all extremities. 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 - Infectious Disease History:: Denies. - Social history:: Smoking status: Patient reports the use of cigarette tobacco products, smokes one-half pack cigarettes per day, Patient uses street drugs, marijuana, Patient/guardian denies using alcohol. - Family history:: not pertinent. Screenin:33 [facility] ED Fall Risk Assessment (Adult) History of falling in the last 3 months, bm8 including since admission No falls in past 3 months (0 pts) Confusion or Disorientation No (0 pts) Intoxicated or Sedated No (0 pts) Impaired Gait No (0 pts) Mobility Assist Device Used No (0 pt) Altered Elimination No (0 pt) Score/Fall Risk Level 0 - 2 = Low Risk Oriented to surroundings, Maintained a safe environment, Educated pt \T\ family on fall prevention, incl call for assistance when getting out of bed, Assessed \T\ reinforced patient's understanding of fall precautions, Hourly rounding (assess needs \T\ fall precautionary measures) done, Used ambulatory aids as needed (educated on \T\ assisted with), Used gait belt as appropriate. Abuse screen: Denies threats or abuse. Nutritional screening: No deficits noted. Tuberculosis screening: No symptoms or risk factors identified. Assessment: 06:33 Reassessment: Patient appears in no apparent distress at this time. Patient and/or bm8 family updated on plan of care and expected duration. Pain level reassessed. Patient is alert, oriented x 3, equal unlabored respirations, skin warm/dry/pink. Patient denies pain at this time. Patient states feeling better. Patient states symptoms have improved. Cardiovascular: Denies chest pain, Heart tones S1 S2 present Capillary refill < 3 seconds in bilateral fingers Patient's skin is warm and dry. Rhythm is sinus tachycardia. Respiratory: Airway is patent Trachea midline Respiratory effort is even, unlabored, Respiratory pattern is regular, symmetrical, Breath sounds are clear bilaterally. GI: No signs and/or symptoms were reported involving the gastrointestinal system. : No signs and/or symptoms were reported regarding the genitourinary system. EENT: No signs and/or symptoms were reported regarding the EENT system. Derm: No signs and/or symptoms reported regarding the dermatologic system. Musculoskeletal: No signs and/or symptoms reported regarding the musculoskeletal system. Vital Signs: 05:21 BP 134 / 82; Pulse 91; Resp 21 S; Temp 98.4(O); Pulse Ox 95% on R/A; Weight 63.5 kg lg3 (R); Height 5 ft. 4 in. (R); Pain 0/10; 06:01 BP 123 / 76; Pulse 76; Resp 18; Temp 98.4; Pulse Ox 100% on Nebulizer Mask; Pain 0/10; bm8 06:33 BP 125 / 81; Pulse 97; Resp 17; Temp 98.4; Pulse Ox 96% on R/A; Pain 0/10; bm8 05:21 Body Mass Index 24.03 (63.50 kg, 162.56 cm) lg3 05:21 Pain Scale: Adult lg3 06:01 Pain Scale: Adult bm8 06:33 Pain Scale: Adult bm8 Woodrow Coma Score: 06:01 Eye Response: spontaneous(4). Motor Response: obeys commands(6). Verbal Response: bm8 oriented(5). Total: 15. 06:33 Eye Response: spontaneous(4). Motor Response: obeys commands(6). Verbal Response: bm8 oriented(5). Total: 15. 21:43 Eye Response: spontaneous(4). Motor Response: obeys commands(6). Verbal Response: sp4 oriented(5). Total: 15. ED Course: 05:05 Patient arrived in ED. jj6 05:06 Marcus Hernandez MD is Attending Physician. sp4 05:22 Triage completed. lg3 05:22 Arm band placed on left wrist. lg3 05:25 Initial lab(s) drawn, by ED staff, sent to lab. Inserted saline lock: 20 gauge in left ty antecubital area, using aseptic technique. Blood collected. Flushed with 10 mL NS. 05:25 BMP Sent. ty 05:25 CBC with Diff Sent. ty 05:25 CPK Sent. ty 05:25 Hepatic Function Sent. ty 05:25 Lipase Sent. ty 05:26 Magnesium Sent. ty 05:26 NT PRO-BNP Sent. ty 05:26 PT-INR Sent. ty 05:26 Ptt, Activated Sent. ty 05:26 Troponin HS Sent. ty 05:28 Andrew Pepe, RN is Primary Nurse. bm8 06:28 Raimundo Ledezma DO is Referral Physician. sp4 06:33 Patient has correct armband on for positive identification. Call light in reach. Side bm8 rails up X 1. Adult w/ patient. Provided Education on: post er care. Client placed on continuous cardiac and pulse oximetry monitoring. NIBP monitoring applied. ekg monitor on. Pulse ox on. NIBP on. Door closed. Noise minimized. Visitors limited. 06:33 No provider procedures requiring assistance completed. IV discontinued, intact, bm8 bleeding controlled, No redness/swelling at site. Pressure dressing applied. Administered Medications: 05:28 Drug: Magnesium Sulfate IVPB 2 grams IVPB once over 2 hrs Route: IVPB; Infused Over: 2 bm8 hrs; Site: left antecubital; 06:36 Follow up: Response: No adverse reaction; IV Status: Completed infusion; IV Intake: [id number] 05:28 Drug: Ativan IVP 1 mg IVP once Route: IVP; Site: left antecubital; bm8 06:36 Follow up: Response: No adverse reaction bm8 05:28 Drug: Dextromethorphan-Guaifenesin PO Liquid 10 mg-100 mg/5 mL 10 ml PO once Route: PO; bm8 06:36 Follow up: Response: No adverse reaction bm8 05:29 Drug: Albuterol Inhalation 2.5 mg Inhalation every 20 minutes x3 Route: Inhalation; bm8 05:29 Drug: Ipratropium Inhalation Aerosol 0.5 mg Inhalation once; Every 20 min for a total bm8 of 3 treatments x3 Route: Inhalation; 05:29 Drug: MethylPrednisoLONE IVP 125 mg IVP once Route: IVP; Site: left antecubital; bm8 06:37 Follow up: Response: No adverse reaction bm8 06:01 Drug: Albuterol Inhalation 2.5 mg Inhalation every 20 minutes x3 Route: Inhalation; bm8 06:01 Drug: Ipratropium Inhalation Aerosol 0.5 mg Inhalation once; Every 20 min for a total bm8 of 3 treatments x3 Route: Inhalation; 06:23 Drug: Albuterol Inhalation 2.5 mg Inhalation every 20 minutes x3 Route: Inhalation; bm8 06:36 Follow up: Response: No adverse reaction bm8 06:24 Drug: Ipratropium Inhalation Aerosol 0.5 mg Inhalation once; Every 20 min for a total bm8 of 3 treatments x3 Route: Inhalation; 06:37 Follow up: Response: No adverse reaction bm8 Medication: 06:33 VIS not applicable for this client. bm8 Intake: 06:36 IV: 50ml; Total: 50ml. bm8 Outcome: 06:29 Discharge ordered by . sp4 06:37 Discharged to home ambulatory, with family, bm8 06:37 Condition: stable 06:37 Discharge instructions given to patient, family, Instructed on discharge instructions, follow up and referral plans. Demonstrated understanding of instructions, follow-up care, medications, Prescriptions given X 4, 06:40 Patient left the ED. bm8 Signatures: Elke Shen, RN RN lg3 Doreen [id number] Marcus Hernandez MD MD sp4 Karlo Chacon Brad RN RN bm8
[2024-05-08 06:55] VITALS: TEMP 98.4
[2024-05-08 06:59] VITALS: BP 125/81; O2SAT 96
== END 2024-05-08 06:40 | disposition home or self-care (01) ==
LOC: ER 05:04
DX: J45.41 Moderate persistent asthma with (acute) exacerbation (principal); F17.210 Nicotine dependence, cigarettes, uncomplicated
CPT/HCPCS: 36415; 80048; 80076; 82550; 83690; 83735; 83880; 84484; 85025; 85610; 85730; J2919; J3475; J7613; J7644

== ENCOUNTER 2024-08-30 11:12 | Emergency (ER) | payer BC, SELFPAY ==
[2024-08-30] MEDS ORDERED: ACETAMINOPHEN 325 MG TABLET ONE (11:38)
[2024-08-30] MEDS ORDERED: IBUPROFEN 400 MG TAB ONE (11:38)
--- NOTE | 2024-08-30 13:19 | ER ---
Nurse's Notes [facility] Name: Arun Sung Age: 39 yrs Sex: Female : 1985 Arrival Date: 08/30/2024 Time: 11:12 Bed 5 Private MD: Diagnosis: Displaced fracture of fifth metatarsal bone, left foot Presentation: 08/30 11:23 Chief complaint: Patient states: Left foot pain onset . Pt states something cm10 fell on her foot and then she twisted her foot. Pt has bruising and swelling to left foot. Coronavirus screen: Client denies travel out of the [place] in the last 14 days. Ebola Screen: Patient denies travel to an Ebola-affected area in the 21 days before illness onset. Initial Sepsis Screen: Does the patient meet any 2 criteria? No. Patient's initial sepsis screen is negative. Does the patient have a suspected source of infection? No. Patient's initial sepsis screen is negative. Risk Assessment: Do you want to hurt yourself or someone else? Patient reports no desire to harm self or others. Onset of symptoms was August 28, 2024. 11:23 Method Of Arrival: Ambulatory cm10 11:23 Acuity: DEBI 4 cm10 Triage Assessment: 11:24 General: Appears in no apparent distress. uncomfortable, Behavior is calm, cooperative. cm10 Pain: Complains of pain in left foot Pain does not radiate. Pain currently is 6 out of 10 on a pain scale. Quality of pain is described as shooting, Pain began 2-3 days ago. Neuro: No deficits noted. Level of Consciousness is awake, alert, obeys commands, Oriented to person, place, time, situation, Appropriate for age. Respiratory: No deficits noted. Airway is patent Respiratory effort is even, unlabored, Respiratory pattern is regular, symmetrical. Historical: - Allergies: 11:24 No Known Allergies; cm10 - PMHx: 11:24 Asthma; cm10 - Immunization history:: Adult Immunizations up to date. - Infectious Disease History:: Denies. - Social history:: Smoking status: Patient denies any tobacco usage or history of. Patient uses street drugs, marijuana. Screenin:30 [facility] ED Fall Risk Assessment (Adult) History of falling in the last 3 months, bp including since admission No falls in past 3 months (0 pts) Confusion or Disorientation No (0 pts) Intoxicated or Sedated No (0 pts) Impaired Gait No (0 pts) Mobility Assist Device Used No (0 pt) Altered Elimination No (0 pt) Score/Fall Risk Level 0 - 2 = Low Risk Oriented to surroundings. Abuse screen: Denies threats or abuse. Denies injuries from another. Nutritional screening: No deficits noted. Tuberculosis screening: No symptoms or risk factors identified. Assessment: 11:30 General: Appears in no apparent distress. uncomfortable, Behavior is calm, cooperative, bp appropriate for age. Vital Signs: 11:23 BP 112 / 80; Pulse 75; Resp 16; Temp 98.5; Pulse Ox 99% ; Weight 74.84 kg; Height 5 ft. cm10 7 in. ; Pain 6/10; 14:25 BP 121 / 75; Pulse 67; Resp 16; Temp 98.5; Pulse Ox 99% ; bp 11:23 Body Mass Index 25.84 (74.84 kg, 170.18 cm) cm10 11:23 Pain Scale: Adult cm10 ED Course: 11:15 Patient arrived in ED. al6 11:17 Jose Euceda PA is PHCP. cp 11:17 Jame Quigley MD is Attending Physician. cp 11:17 David Mayorga, RN is Primary Nurse. bp 11:24 Triage completed. cm10 11:24 Arm band placed on right wrist. Patient placed in an exam room, on a stretcher. cm10 11:30 Patient has correct armband on for positive identification. bp 13:06 XRAY Foot LEFT 3 View In Process Unspecified. EDMS 13:17 David Moreland DPM is Referral Physician. cp 13:30 Crutch training done. Orthoglass splint: Posterior short lleg splint applied on left bp leg. 14:24 No provider procedures requiring assistance completed. Patient did not have IV access bp during this emergency room visit. Administered Medications: 11:40 Drug: Ibuprofen PO 800 mg PO once Route: PO; bp 14:23 Follow up: Response: No adverse reaction bp 11:40 Drug: Acetaminophen PO 650 mg PO once Route: PO; bp 14:23 Follow up: Response: No adverse reaction bp 13:30 Drug: Hydrocodone-Acetaminophen PO (7.5 mg-325 mg) 1 tabs PO once; RASS on ADMIN: bp Combtv4, Very Agttd3, Agttd2, Rstlss1, AlertClm0, Drwsy-1, Lt Sdtn-2, Mod Sdtn-3, Dp Sdtn-4, UnArsble-5 Route: PO; 14:22 Follow up: Response: No adverse reaction bp Medication: 11:30 VIS not applicable for this client. bp Outcome: 13:18 Discharge ordered by . cp 14:24 Discharged to home via wheelchair, with family, bp 14:24 Condition: stable 14:24 Discharge instructions given to patient, Instructed on discharge instructions, follow up and referral plans. medication usage, crutch walking, Demonstrated understanding of instructions, follow-up care, medications, crutch walking, splint care, Prescriptions given X 1, 14:26 Patient left the ED. bp Signatures: Dispatcher [employer] EDMS Jose Euceda PA PA cp Peltier, Brian, RN RN Karly Fletcher RN RN cm10 Sol Prado [id number] Corrections: (The following items were deleted from the chart) 13:48 13:47 Crutch training done. Orthoglass splint: Posterior short lleg splint applied on bp left leg. bp
--- NOTE | 2024-08-30 13:19 | EDPHYS ---
Physician Documentation [facility] Name: Arun Sung Age: 39 yrs Sex: Female : 1985 Arrival Date: 08/30/2024 Time: 11:12 Bed 5 Private MD: ED Physician Jame Quigley HPI: 08/30 11:35 This 39 yrs old Female presents to ER via Ambulatory with complaints of Foot Pain. cp 11:35 The patient presents with an injury, pain, that is acute. The complaints affect the cp left foot. Onset: The symptoms/episode began/occurred 2 day(s) ago. 11:35 Associated signs and symptoms: Pertinent negatives calf tenderness, ankle pain. cp Historical: - Allergies: 11:24 No Known Allergies; cm10 - PMHx: 11:24 Asthma; cm10 - Immunization history:: Adult Immunizations up to date. - Infectious Disease History:: Denies. - Social history:: Smoking status: Patient denies any tobacco usage or history of. Patient uses street drugs, marijuana. ROS: 11:40 MS/extremity: Positive for ecchymosis, pain, swelling, tenderness, of the left foot, cp 11:40 Constitutional: Negative for body aches, chills, fever, cp 11:40 Neck: Negative for pain with movement, pain at rest, 11:40 Back: Negative for pain at rest, pain with movement, 11:40 All other systems are negative, Exam: 11:44 Constitutional: The patient appears in no acute distress, alert, awake, non-toxic, well cp developed, well nourished, 11:44 Head/Face: Normocephalic, atraumatic. cp 11:44 Musculoskeletal/extremity: Extremities: noted in the left foot: ecchymosis, swelling, tenderness, Perfusion: the extremity is normally perfused throughout, Sensation intact. 11:45 Cardiovascular: Rate: normal, cp 11:45 Respiratory: the patient does not display signs of respiratory distress, Respirations: normal, no use of accessory muscles, no retractions, labored breathing, is not present, 11:45 Back: pain, is absent, ROM is normal, Vital Signs: 11:23 BP 112 / 80; Pulse 75; Resp 16; Temp 98.5; Pulse Ox 99% ; Weight 74.84 kg; Height 5 ft. cm10 7 in. ; Pain 6/10; 14:25 BP 121 / 75; Pulse 67; Resp 16; Temp 98.5; Pulse Ox 99% ; bp 11:23 Body Mass Index 25.84 (74.84 kg, 170.18 cm) cm10 11:23 Pain Scale: Adult cm10 MDM: 11:17 Medical Screening Exam initiated cp 11:45 Differential diagnosis: dislocation, closed fracture, contusion, sprain. cp 13:18 Data reviewed: vital signs, nurses notes, radiologic studies, plain films, and as a cp result, I will discharge patient. 13:18 I considered the following discharge prescriptions or medication management in the cp emergency department Medications were administered in the Emergency Department. See MAR. Independent interpretation of the following test(s) in the Emergency Department X-Ray: My interpretation is images of left foot positive for left fifth metatarsal fracture. 08/30 11:32 Order name: XRAY Foot LEFT 3 View cp 08/30 13:16 Order name: Splint Leg: Short Leg: posterior short leg; Complete Time: 13:40 cp 08/30 13:16 Order name: Crutches; Complete Time: 13:40 cp Administered Medications: 11:40 Drug: Ibuprofen PO 800 mg PO once Route: PO; bp 14:23 Follow up: Response: No adverse reaction bp 11:40 Drug: Acetaminophen PO 650 mg PO once Route: PO; bp 14:23 Follow up: Response: No adverse reaction bp 13:30 Drug: Hydrocodone-Acetaminophen PO (7.5 mg-325 mg) 1 tabs PO once; RASS on ADMIN: bp Combtv4, Very Agttd3, Agttd2, Rstlss1, AlertClm0, Drwsy-1, Lt Sdtn-2, Mod Sdtn-3, Dp Sdtn-4, UnArsble-5 Route: PO; 14:22 Follow up: Response: No adverse reaction bp Disposition: 19:19 Co-signature as Attending Physician, Jame Quigley MD I reviewed the patient's care rn provided by the Advanced Practice Provider and agree with the diagnosis and treatment plan. 08/31 14:18 Chart complete. cp Disposition Summary: 08/30/24 13:18 Discharge Ordered Notes: Location: Home cp Problem: new cp Symptoms: have improved cp Condition: Stable cp Diagnosis - Displaced fracture of fifth metatarsal bone, left foot cp Followup: cp - With: David Moreland DPM - When: 2 - 3 days - Reason: Recheck today's complaints Discharge Instructions: - Discharge Summary Sheet cp - Metatarsal Fracture cp - Foot Pain cp - Form - Return To Work cp Forms: - Medication Reconciliation Form cp - Antibiotic Education cp - Prescription Opioid Use cp - Patient Portal Instructions cp - Leadership Thank You Letter cp Prescriptions: - Anaprox DS 550 mg Oral Tablet - take 1 tablet ORAL route every 12 hours As needed; 20 tablet; Refills: 0, cp Product Selection Permitted Signatures: Dispatcher [employer] EDMS Jame Quigley MD MD rn Page, Corey, PA PA cp David Mayorga, RN RN Karly Fletcher RN RN cm10
[2024-08-30] MEDS ORDERED: HYDROCODONE/APAP 7.5/325 MG TAB ONE (13:30)
--- NOTE | 2024-08-30 14:34 | RAD REPORT ---
EXAMINATION: XR Foot Left 3 View CLINICAL INDICATION: Female, 39 years old. [facility] MAIN PAIN Bed Name: 5 TECHNIQUE: 3 view radiographs of the left foot were obtained. COMPARISON: No prior exam. FINDINGS: Oblique mildly displaced fracture along the mid to distal fifth metatarsal shaft. Subtle ir regularity and depression along the lateral base of the fourth metatarsal as well, suggesting a nondisplaced or impacted fracture. Otherwise normal alignment. Diffuse soft tissue swelling about the foot the midfoot. No significant degenerative changes. IMPRESSION: Oblique mildly displaced mid to distal shaft metatarsal fracture. Probable subtle fracture along the lateral base of the fourth metatarsal.
[2024-08-30 14:54] VITALS: TEMP 98.5; O2SAT 99
[2024-08-30 14:55] VITALS: BP 121/75
== END 2024-08-30 14:26 | disposition home or self-care (01) ==
LOC: ER 11:12
PROC: 2W3TX1Z Immobilization of Left Foot using Splint (ICD-10-PCS; principal; 2024-08-30)
DX: S92.352A Displaced fracture of fifth metatarsal bone, left foot, initial encounter for closed fracture (principal)
CPT/HCPCS: 99284